=== PATIENT | male | born 1940 | race Caucasian/White ===

== ENCOUNTER 2022-11-14 17:03 | Inpatient (IN) | payer MEDICARE, OTHER ==
[~2022-11-14] VITALS: Ht 167.6 cm; Wt 90.7 kg
[2022-11-14] MEDS ORDERED: IV NS 0.9% 500 ML BAG IV ONE (17:30)
[2022-11-14 17:51] LABS: BASOPHILS # (AUTO) 0.1 K/uL (0.0-0.2); BASOPHILS % (AUTO) 0.5 % (0.0-2.0); EOSINOPHILS % (AUTO) 4.5 % (0.0-6.0); HEMATOCRIT 28 % (39-51); HEMOGLOBIN 9.4 g/dL (13.5-17.5); LYMPHOCYTES # (AUTO) 1.4 K/uL (0.8-4.8); LYMPHOCYTES % (AUTO) 13.5 % (20.0-44.0); MEAN CORPUSCULAR HGB CONC 34 g/dl (31.0-36.0); MEAN CORPUSCULAR VOLUME 91 fL (80-96); MONOCYTES # (AUTO) 0.8 K/uL (0.1-1.30); NEUTROPHILS # (AUTO) 7.8 K/uL (1.8-8.9); NEUTROPHILS % (AUTO) 73.5 % (43.0-81.0); PLATELET COUNT (AUTO) 126 K/uL (150-450); RED BLOOD CELL COUNT(AUTO) 3.05 MIL/uL (4.5-6.0); WHITE BLOOD COUNT (AUTO) 10.5 K/uL (4.3-11.0)
[2022-11-14 18:11] LABS: CALCIUM, SERUM 8.5 mg/dL (8.5-10.1); CARBON DIOXIDE 27 mmol/L (21-32); CHLORIDE 100 mmol/L (98-107); CREATININE 3.9 mg/dL (0.6-1.3); GLUCOSE 84 mg/dL (74-106); POTASSIUM 3.1 mmol/L (3.5-5.1); SODIUM SERUM 134 mmol/L (136-145); UREA NITROGEN, BLOOD 23 mg/dL (7-18)
[2022-11-14 18:24] LABS: ALANINE AMINOTRANSFERASE 6 U/L (12-78); ALKALINE PHOSPHATASE 68 U/L (46-116); ASPARTATE AMINOTRANSFERASE 15 U/L (15-37); BILIRUBIN,DIRECT 0.1 mg/dL (0.0-0.2); BILIRUBIN,TOTAL 0.5 mg/dL (0.2-1.0); TOTAL PROTEIN, SERUM 6.9 g/dL (6.4-8.2)
[2022-11-14 18:26] LABS: THYROID STIMULATING HORMONE 0.591 uIU/mL (0.358-3.74)
[2022-11-14] MEDS ORDERED: ASPIRIN 81 MG TAB.CHEW PO ONE (19:00)
[2022-11-14] MEDS ORDERED: HYDROCODONE/APAP 5/325MG TABLET PO PRN (19:30)
[2022-11-14] MEDS ORDERED: MAG HYDROX/AL HYDROX/SIMETH 30 ML UDC PO PRN (19:30)
[2022-11-14] MEDS ORDERED: ONDANSETRON HCL/PF 4 MG/2 ML VIAL IVP PRN (19:30)
[2022-11-14] MEDS ORDERED: Z GUARD REMEDY 4 OZ OINT TP PRN (19:30)
[2022-11-14] MEDS ORDERED: MORPHINE SULFATE INJ 2 MG/ML DISP.SYRIN IV PRN (19:30)
[2022-11-14] MEDS ORDERED: TEMAZEPAM 15 MG CAPSULE PO PRN (19:30)
[2022-11-14] MEDS ORDERED: MAGNESIUM HYDROXIDE 30 ML UDC PO PRN (19:30)
[2022-11-14 21:30] VITALS: BP 124/58
[2022-11-14 21:57] LABS: EOSINOPHILS % (MANUAL) 2 % (0-4); LYMPHOCYTES % (MANUAL) 13 % (16-48); MONOCYTES % (MANUAL) 7 % (0-11.0); NEUTROPHILS % (MANUAL) 78 (42-76)
[2022-11-14 22:15] VITALS: BP 124/58
[2022-11-15] VITALS: BP 106/54
[2022-11-15 04:00] VITALS: BP 111/59
[2022-11-15 06:32] LABS: BASOPHILS % (AUTO) 0.5 % (0.0-2.0); EOSINOPHILS % (AUTO) 4.3 % (0.0-6.0); HEMATOCRIT 26 % (39-51); HEMOGLOBIN 8.8 g/dL (13.5-17.5); LYMPHOCYTES # (AUTO) 1.5 K/uL (0.8-4.8); LYMPHOCYTES % (AUTO) 13.6 % (20.0-44.0); MEAN CORPUSCULAR HGB CONC 33 g/dl (31.0-36.0); MEAN CORPUSCULAR VOLUME 92 fL (80-96); MONOCYTES # (AUTO) 1.1 K/uL (0.1-1.30); MONOCYTES % (AUTO) 9.8 % (2.0-12.0); NEUTROPHILS # (AUTO) 7.8 K/uL (1.8-8.9); NEUTROPHILS % (AUTO) 71.8 % (43.0-81.0); PLATELET COUNT (AUTO) 118 K/uL (150-450); RED BLOOD CELL COUNT(AUTO) 2.87 MIL/uL (4.5-6.0); WHITE BLOOD COUNT (AUTO) 10.8 K/uL (4.3-11.0)
[2022-11-15 07:02] LABS: CALCIUM, SERUM 8.3 mg/dL (8.5-10.1); CARBON DIOXIDE 27 mmol/L (21-32); CHLORIDE 101 mmol/L (98-107); CREATININE 4.9 mg/dL (0.6-1.3); GLUCOSE 91 mg/dL (74-106); PHOSPHORUS 3.5 mg/dL (2.5-4.9); POTASSIUM 3.6 mmol/L (3.5-5.1); SODIUM SERUM 136 mmol/L (136-145); UREA NITROGEN, BLOOD 34 mg/dL (7-18)
[2022-11-15 07:12] LABS: CHOLESTEROL 75 mg/dL (<200); HDL CHOLESTEROL 26 mg/dL (40-60); LDL 44 mg/dL (0-99); THYROID STIMULATING HORMONE 2.169 uIU/mL (0.358-3.74); TRIGLYCERIDES 109 mg/dL (30-150)
[2022-11-15 08:00] VITALS: BP 130/64
[2022-11-15] MEDS: PANTOPRAZOLE 40 MG TABLET.DR PO SCH (08:07)
[2022-11-15] MEDS: ASPIRIN 81 MG TAB.CHEW PO SCH (08:07)
[2022-11-15 12:00] VITALS: BP 118/43
[2022-11-15 16:00] VITALS: BP 124/72
[2022-11-15 20:00] VITALS: BP 139/79
[2022-11-15 22:37] LABS: EOSINOPHILS % (MANUAL) 3 % (0-4); LYMPHOCYTES % (MANUAL) 12 % (16-48); MONOCYTES % (MANUAL) 11 % (0-11.0); NEUTROPHILS % (MANUAL) 74 (42-76)
[2022-11-16] VITALS: BP 131/71
[2022-11-16 04:00] VITALS: BP 143/73
[2022-11-16 06:48] LABS: BASOPHILS % (AUTO) 0.4 % (0.0-2.0); EOSINOPHILS % (AUTO) 4.3 % (0.0-6.0); HEMATOCRIT 27 % (39-51); HEMOGLOBIN 9.1 g/dL (13.5-17.5); LYMPHOCYTES # (AUTO) 1.7 K/uL (0.8-4.8); LYMPHOCYTES % (AUTO) 15.7 % (20.0-44.0); MEAN CORPUSCULAR HGB CONC 34 g/dl (31.0-36.0); MEAN CORPUSCULAR VOLUME 92 fL (80-96); MONOCYTES % (AUTO) 9.4 % (2.0-12.0); NEUTROPHILS # (AUTO) 7.5 K/uL (1.8-8.9); NEUTROPHILS % (AUTO) 70.2 % (43.0-81.0); PLATELET COUNT (AUTO) 116 K/uL (150-450); RED BLOOD CELL COUNT(AUTO) 2.93 MIL/uL (4.5-6.0); WHITE BLOOD COUNT (AUTO) 10.7 K/uL (4.3-11.0)
[2022-11-16 07:47] LABS: CALCIUM, SERUM 8.7 mg/dL (8.5-10.1); CARBON DIOXIDE 24 mmol/L (21-32); CHLORIDE 99 mmol/L (98-107); CREATININE 6.6 mg/dL (0.6-1.3); GLUCOSE 70 mg/dL (74-106); MAGNESIUM 2.2 mg/dL (1.8-2.4); PHOSPHORUS 4.4 mg/dL (2.5-4.9); POTASSIUM 4.1 mmol/L (3.5-5.1); SODIUM SERUM 136 mmol/L (136-145); UREA NITROGEN, BLOOD 45 mg/dL (7-18)
[2022-11-16 08:18] VITALS: BP 138/80
[2022-11-16] MEDS: PANTOPRAZOLE 40 MG TABLET.DR PO SCH (08:32)
[2022-11-16] MEDS: ACETAMINOPHEN 325 MG TABLET PO PRN (08:32)
[2022-11-16] MEDS: ASPIRIN 81 MG TAB.CHEW PO SCH (08:32)
[2022-11-16] MEDS ORDERED: BISACODYL (5 MG) 5 MG TABLET.DR PO PRN (16:00)
[2022-11-16] MEDS ORDERED: BISACODYL SUPP (10 MG) 10 MG/SUPP.RECT SUPP.RECT RC PRN (16:00)
[2022-11-16] MEDS ORDERED: POLYETHYLENE GLYCOL 3350 17 GM POWD.PACK PO PRN (16:00)
[2022-11-16 20:00] VITALS: BP 116/61
[2022-11-16] MEDS: SENNOSIDES 8.6 MG TABLET PO SCH (22:30)
[2022-11-17] VITALS: BP 139/56
[2022-11-17 04:00] VITALS: BP 145/75
[2022-11-17 06:57] LABS: BASOPHILS % (AUTO) 0.5 % (0.0-2.0); EOSINOPHILS % (AUTO) 4.4 % (0.0-6.0); HEMATOCRIT 27 % (39-51); HEMOGLOBIN 8.9 g/dL (13.5-17.5); LYMPHOCYTES # (AUTO) 1.5 K/uL (0.8-4.8); LYMPHOCYTES % (AUTO) 14.5 % (20.0-44.0); MEAN CORPUSCULAR HGB CONC 34 g/dl (31.0-36.0); MEAN CORPUSCULAR VOLUME 92 fL (80-96); MONOCYTES # (AUTO) 0.9 K/uL (0.1-1.30); MONOCYTES % (AUTO) 8.4 % (2.0-12.0); NEUTROPHILS # (AUTO) 7.4 K/uL (1.8-8.9); NEUTROPHILS % (AUTO) 72.2 % (43.0-81.0); PLATELET COUNT (AUTO) 121 K/uL (150-450); RED BLOOD CELL COUNT(AUTO) 2.88 MIL/uL (4.5-6.0); WHITE BLOOD COUNT (AUTO) 10.2 K/uL (4.3-11.0)
[2022-11-17 07:21] LABS: CALCIUM, SERUM 8.8 mg/dL (8.5-10.1); CARBON DIOXIDE 22 mmol/L (21-32); CHLORIDE 98 mmol/L (98-107); GLUCOSE 97 mg/dL (74-106); MAGNESIUM 2.4 mg/dL (1.8-2.4); PHOSPHORUS 5.4 mg/dL (2.5-4.9); POTASSIUM 4.3 mmol/L (3.5-5.1); SODIUM SERUM 133 mmol/L (136-145); UREA NITROGEN, BLOOD 59 mg/dL (7-18)
[2022-11-17 07:25] LABS: CREATININE 8.3 mg/dL (0.6-1.3)
[2022-11-17 08:00] VITALS: BP 144/81
[2022-11-17] MEDS: PANTOPRAZOLE 40 MG TABLET.DR PO SCH (08:36)
[2022-11-17] MEDS: ASPIRIN 81 MG TAB.CHEW PO SCH (08:36)
[2022-11-17 12:00] VITALS: BP 161/99
[2022-11-17 16:00] VITALS: BP 125/75
[2022-11-17 20:00] VITALS: BP 147/59
[2022-11-17] MEDS: SENNOSIDES 8.6 MG TABLET PO SCH (22:00)
[2022-11-18] VITALS: BP 130/63
[2022-11-18 04:00] VITALS: BP 147/68
[2022-11-18 07:00] VITALS: BP 132/56
[2022-11-18] MEDS: PANTOPRAZOLE 40 MG TABLET.DR PO SCH (07:56)
[2022-11-18 08:56] LABS: ALANINE AMINOTRANSFERASE 9 U/L (12-78); ALKALINE PHOSPHATASE 76 U/L (46-116); ASPARTATE AMINOTRANSFERASE 13 U/L (15-37); BILIRUBIN,TOTAL 0.4 mg/dL (0.2-1.0); CARBON DIOXIDE 27 mmol/L (21-32); CHLORIDE 100 mmol/L (98-107); CREATININE 6.2 mg/dL (0.6-1.3); GLUCOSE 83 mg/dL (74-106); POTASSIUM 4.1 mmol/L (3.5-5.1); SODIUM SERUM 137 mmol/L (136-145); TOTAL PROTEIN, SERUM 6.7 g/dL (6.4-8.2); UREA NITROGEN, BLOOD 38 mg/dL (7-18)
[2022-11-18] MEDS: ASPIRIN 81 MG TAB.CHEW PO SCH (10:06)
[2022-11-18] MEDS ORDERED: ASPI-1169 PO (10:41)
[2022-11-18 16:00] VITALS: BP 126/65
[2022-11-18] MEDS: SENNOSIDES 8.6 MG TABLET PO SCH (21:18)
[2022-11-19] MEDS: ACETAMINOPHEN 325 MG TABLET PO PRN (00:01)
[2022-11-19 07:00] VITALS: BP 142/67
== END 2022-11-19 06:00 | disposition short-term general hospital (02) | DRG 280 ==
LOC: ER 17:12 → MED 20:54 → TELE 21:24
PROVIDERS: ADMIT Nurse Practitioner Acute Care; ATTEND Internal Medicine
PROC: 5A1D70Z Performance of Urinary Filtration, Intermittent, Less than 6 Hours Per Day (ICD-10-PCS; principal; 2022-11-17)
DX: I13.2 Hypertensive heart and chronic kidney disease with heart failure and with stage 5 chronic kidney disease, or end stage renal disease (principal); I21.A1 Myocardial infarction type 2; I50.33 Acute on chronic diastolic (congestive) heart failure; N18.6 End stage renal disease; E87.1 Hypo-osmolality and hyponatremia; D62 Acute posthemorrhagic anemia; I25.83 Coronary atherosclerosis due to lipid rich plaque; E78.5 Hyperlipidemia, unspecified; I48.91 Unspecified atrial fibrillation; Z99.2 Dependence on renal dialysis; Z85.46 Personal history of malignant neoplasm of prostate; D63.8 Anemia in other chronic diseases classified elsewhere; D69.6 Thrombocytopenia, unspecified; G20 Parkinson's disease; F29 Unspecified psychosis not due to a substance or known physiological condition; E66.3 Overweight; Z68.32 Body mass index [BMI] 32.0-32.9, adult; G93.89 Other specified disorders of brain; I27.20 Pulmonary hypertension, unspecified; I70.0 Atherosclerosis of aorta
CPT/HCPCS: 36415; 70450-TC; 71045-TC; 80048-TC; 80053-TC; 80061-TC; 80076-TC; 83735-TC; 83880; 84100-TC; 84443-TC; 84484-TC; 85025-TC; 86706; 87040-TC; 87081-TC; 87340; 90935-TC; 93307-TC; 97112-TC; 97530-TC; C9803; G0378; J7030; J7040

== ENCOUNTER 2022-12-22 17:11 | Emergency (ER) | payer OTHER ==
[~2022-12-22] VITALS: Ht 167.6 cm; Wt 68.0 kg
[~2022-12-22 17:11] MED LIST: ASPI-1169 PO
--- NOTE | 2022-12-22 17:32 | NUR ---
DR JONES AT BEDSIDE
--- NOTE | 2022-12-22 17:47 | NUR ---
XRAY AT BEDSIDE
--- NOTE | 2022-12-22 17:55 | NUR ---
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 COLLECTED BLOOD AND SENT TO LAB
[2022-12-22] MEDS ORDERED: LORAZEPAM INJ 2 MG/ML VIAL IV ONE (18:00)
[2022-12-22] MEDS ORDERED: ACETAMINOPHEN ES 500 MG TABLET PO ONE (18:00)
[2022-12-22 18:18] LABS: BASOPHILS % (AUTO) 0.4 % (0.0-2.0); EOSINOPHILS % (AUTO) 4.3 % (0.0-6.0); HEMATOCRIT 36 % (39-51); HEMOGLOBIN 11.7 g/dL (13.5-17.5); LYMPHOCYTES # (AUTO) 1.9 K/uL (0.8-4.8); LYMPHOCYTES % (AUTO) 27.9 % (20.0-44.0); MEAN CORPUSCULAR HGB CONC 32 g/dl (31.0-36.0); MEAN CORPUSCULAR VOLUME 95 fL (80-96); MONOCYTES # (AUTO) 0.7 K/uL (0.1-1.30); MONOCYTES % (AUTO) 9.6 % (2.0-12.0); NEUTROPHILS % (AUTO) 57.8 % (43.0-81.0); PLATELET COUNT (AUTO) 78 K/uL (150-450); RED BLOOD CELL COUNT(AUTO) 3.83 MIL/uL (4.5-6.0)
--- NOTE | 2022-12-22 18:18 | NUR ---
ESTABLISHED IV ACCESS. L FA 20G
--- NOTE | 2022-12-22 18:19 | NUR ---
ROBERTH GONZÁLES, DAUGHTER
[2022-12-22] MEDS ORDERED: ACETAMINOPHEN ES 500 MG TABLET ONE (18:20)
[2022-12-22] MEDS ORDERED: LORAZEPAM INJ 2 MG/ML VIAL ONE (18:21)
--- NOTE | 2022-12-22 18:25 | NUR ---
PATIENT PASSED SWALLOW SCREEN. MEDS CRUSHED AND GIVEN WITH APPLE SAUCE
[2022-12-22 18:34] LABS: SERUM AMMONIA 27 umol/L (11-32)
--- NOTE | 2022-12-22 18:37 | NUR ---
PATIENT TAKEN TO CT VIA [facility]
[2022-12-22 18:45] LABS: ALANINE AMINOTRANSFERASE 8 U/L (12-78); ALBUMIN 3.5 g/dL (3.4-5.0); ALKALINE PHOSPHATASE 74 U/L (46-116); ASPARTATE AMINOTRANSFERASE 13 U/L (15-37); BILIRUBIN,DIRECT 0.2 mg/dL (0.0-0.2); BILIRUBIN,TOTAL 0.7 mg/dL (0.2-1.0); CALCIUM, SERUM 8.7 mg/dL (8.5-10.1); CARBON DIOXIDE 27 mmol/L (21-32); CHLORIDE 102 mmol/L (98-107); CREATININE 4.5 mg/dL (0.6-1.3); GLUCOSE 79 mg/dL (74-106); POTASSIUM 3.9 mmol/L (3.5-5.1); SODIUM SERUM 138 mmol/L (136-145); UREA NITROGEN, BLOOD 23 mg/dL (7-18)
[2022-12-22 18:50] LABS: MAGNESIUM 2.2 mg/dL (1.8-2.4)
--- NOTE | 2022-12-22 22:46 | NUR ---
[facility] CALLED ETA 90 MINS
[2022-12-23 00:05] LABS: NEUTROPHILS % (MANUAL) 61 (42-76)
[2022-12-23 00:06] LABS: EOSINOPHILS % (MANUAL) 3 % (0-4); LYMPHOCYTES % (MANUAL) 26 % (16-48); MONOCYTES % (MANUAL) 10 % (0-11.0)
--- NOTE | 2022-12-23 01:30 | NUR ---
TRANSFERRED TO THE FACILITY IN STABLE CONDTION
[2022-12-23 01:39] VITALS: BP 131/59
== END 2022-12-23 01:39 | disposition home or self-care (01) ==
LOC: ER 17:14
DX: I12.0 Hypertensive chronic kidney disease with stage 5 chronic kidney disease or end stage renal disease (principal); N18.6 End stage renal disease; D63.1 Anemia in chronic kidney disease; D69.6 Thrombocytopenia, unspecified; E87.70 Fluid overload, unspecified; R53.1 Weakness; Z79.82 Long term (current) use of aspirin; Z99.2 Dependence on renal dialysis
CPT/HCPCS: 99285; 96374; 70450; 71045; 93005; 82140; 85025; 80048; 80076; 83735; 36415; 84484 ×2; 83880; 85007; J2060; J7030

== ENCOUNTER 2024-01-08 12:35 | Inpatient (IN) | payer OTHER ==
[~2024-01-08] VITALS: Ht 188 cm; Wt 88.9 kg
[2024-01-08 13:03] LABS: BASOPHILS % (AUTO) 0.4 % (0.0-2.0); EOSINOPHILS # (AUTO) 0.5 K/uL (0.0-0.7); EOSINOPHILS % (AUTO) 5.6 % (0.0-6.0); HEMATOCRIT 21 % (39-51); HEMOGLOBIN 7.1 g/dL (13.5-17.5); LYMPHOCYTES # (AUTO) 1.8 K/uL (0.8-4.8); LYMPHOCYTES % (AUTO) 20.4 % (20.0-44.0); MEAN CORPUSCULAR HEMOGLOBIN 32 PG (26.0-33.0); MEAN CORPUSCULAR HGB CONC 34 g/dl (31.0-36.0); MEAN CORPUSCULAR VOLUME 95 fL (80-96); MONOCYTES # (AUTO) 0.8 K/uL (0.1-1.30); MONOCYTES % (AUTO) 9.2 % (2.0-12.0); NEUTROPHILS # (AUTO) 5.7 K/uL (1.8-8.9); NEUTROPHILS % (AUTO) 64.4 % (43.0-81.0); PLATELET COUNT (AUTO) 125 K/uL (150-450); RED BLOOD CELL COUNT(AUTO) 2.21 MIL/uL (4.5-6.0); RED CELL DISTRIBUTION WIDTH 15.2 % (11.5-15.0); WHITE BLOOD COUNT (AUTO) 8.9 K/uL (4.3-11.0)
[2024-01-08 13:11] LABS: CALCIUM, SERUM 9.5 mg/dL (8.5-10.1); CARBON DIOXIDE 27 mmol/L (21-32); CHLORIDE 95 mmol/L (98-107); GLUCOSE 105 mg/dL (74-106); POTASSIUM 3.8 mmol/L (3.5-5.1); SODIUM SERUM 133 mmol/L (136-145)
[2024-01-08 13:16] LABS: INR 1.2 (0.91-1.10); PROTHROMBIN TIME 12.6 SECS (9.2-11.1)
[2024-01-08 13:24] LABS: ALANINE AMINOTRANSFERASE 12 U/L (12-78); ALBUMIN 3.3 g/dL (3.4-5.0); ALKALINE PHOSPHATASE 58 U/L (46-116); ASPARTATE AMINOTRANSFERASE 9 U/L (15-37); BILIRUBIN,DIRECT 0.1 mg/dL (0.0-0.2); BILIRUBIN,TOTAL 0.3 mg/dL (0.2-1.0); NT-PRO BNP > 25000 pg/mL (0-125); TOTAL PROTEIN, SERUM 6.7 g/dL (6.4-8.2)
[2024-01-08 13:25] LABS: CREATININE 8.3 mg/dL (0.6-1.3)
[2024-01-08 13:28] LABS: UREA NITROGEN, BLOOD 80 mg/dL (7-18)
[2024-01-08] MEDS ORDERED: ZINC57OI4 TP (15:11)
[2024-01-08] MEDS ORDERED: PRIM50TA27 PO (15:11)
[2024-01-08] MEDS ORDERED: HYDR-4076 PO (15:11)
[2024-01-08] MEDS ORDERED: ATOR20TA PO (15:11)
[2024-01-08] MEDS ORDERED: CYCL30DR EACHEYE (15:11)
[2024-01-08] MEDS ORDERED: ACET-868 PO (15:11)
[2024-01-08] MEDS ORDERED: LORA10TA7 PO (15:11)
[2024-01-08] MEDS ORDERED: MONT10TA22 PO (15:11)
[2024-01-08] MEDS ORDERED: POVI3780 TP (15:11)
[2024-01-08] MEDS ORDERED: MAGN400O6 PO (15:11)
[2024-01-08] MEDS ORDERED: CHOL200059 PO (15:11)
[2024-01-08] MEDS ORDERED: BISA10SU11 RC (15:11)
[2024-01-08] MEDS ORDERED: APIX2.5T PO (15:11)
[2024-01-08] MEDS ORDERED: SEVELAMER CARBONATE PO (15:11)
[2024-01-08] MEDS ORDERED: CINA30TA2 PO (15:11)
[2024-01-08] MEDS ORDERED: FLUT16SP BNOSTRILS (15:11)
[2024-01-08] MEDS ORDERED: GABA-532 PO (15:11)
[2024-01-08] MEDS ORDERED: ALEN70TA80 PO (15:11)
[2024-01-08] MEDS ORDERED: DOCU100T2 PO (15:11)
[2024-01-08] MEDS ORDERED: FOLI0.8T2 PO (15:11)
[2024-01-08] MEDS ORDERED: GLUC1KIT IM (15:11)
[2024-01-08] MEDS ORDERED: AMIN30LI2 PO (15:11)
[2024-01-08] MEDS ORDERED: AZEL205. BNOSTRILS (15:11)
[2024-01-08] MEDS ORDERED: CELE100C PO (15:11)
[2024-01-08] MEDS ORDERED: DOXA2TAB2 PO (15:11)
[2024-01-08] MEDS ORDERED: LISI10TA29 PO (15:11)
[2024-01-08] MEDS ORDERED: BENZ14GE MM (15:11)
[2024-01-08] MEDS ORDERED: ACETAMINOPHEN 325 MG TABLET PO PRN (16:00)
[2024-01-08] MEDS ORDERED: hydrALAZINE HCL IV 20 MG VIAL IV PRN (16:00)
[2024-01-08] MEDS ORDERED: ONDANSETRON HCL/PF 4 MG/2 ML VIAL IVP PRN (16:00)
[2024-01-08] MEDS ORDERED: PRIMIDONE 50 MG TABLET PO PRN (19:00)
[2024-01-08 20:00] VITALS: BP 129/61; TEMP 98; O2SAT 100
[2024-01-08 21:08] LABS: HEMOGLOBIN 6.9 g/dL (13.5-17.5)
[2024-01-08] MEDS: ATORVASTATIN 10 MG TABLET PO SCH (21:29)
[2024-01-08] MEDS: DOXAZOSIN MESYLATE (1 MG) 1 MG TABLET PO SCH (21:30)
[2024-01-08] MEDS: INSULIN REGULAR, HUMAN 100 UNIT/ML 3 ML VIAL SQ PRN (21:42)
[2024-01-08] MEDS: BLOOD SUGAR DIAGNOSTIC 1 EACH STRIP IN SCH (21:42)
[2024-01-08 22:25] VITALS: BP 136/64; TEMP 97.5
[2024-01-08 22:45] VITALS: BP 117/64; TEMP 97.5
[2024-01-08 23:00] VITALS: BP 122/71; TEMP 97.6
[2024-01-08 23:15] VITALS: BP 114/56; TEMP 97.5
[2024-01-08 23:30] VITALS: BP 118/60; TEMP 97.7
[2024-01-09] VITALS (12 sets, daily range): BP systolic 109–143; BP diastolic 51–68; TEMP 97.6–98.6; O2SAT 96–100
[2024-01-09 07:06] LABS: BASOPHILS % (AUTO) 0.6 % (0.0-2.0); EOSINOPHILS # (AUTO) 0.5 K/uL (0.0-0.7); EOSINOPHILS % (AUTO) 6.1 % (0.0-6.0); LYMPHOCYTES # (AUTO) 1.5 K/uL (0.8-4.8); LYMPHOCYTES % (AUTO) 18.8 % (20.0-44.0); MEAN CORPUSCULAR HEMOGLOBIN 32 PG (26.0-33.0); MEAN CORPUSCULAR HGB CONC 34 g/dl (31.0-36.0); MEAN CORPUSCULAR VOLUME 94 fL (80-96); MONOCYTES # (AUTO) 0.7 K/uL (0.1-1.30); MONOCYTES % (AUTO) 8.7 % (2.0-12.0); NEUTROPHILS # (AUTO) 5.2 K/uL (1.8-8.9); NEUTROPHILS % (AUTO) 65.8 % (43.0-81.0); PLATELET COUNT (AUTO) 119 K/uL (150-450); RED BLOOD CELL COUNT(AUTO) 2.15 MIL/uL (4.5-6.0); WHITE BLOOD COUNT (AUTO) 7.9 K/uL (4.3-11.0)
[2024-01-09 07:32] LABS: HEMOGLOBIN 6.8 g/dL (13.5-17.5)
[2024-01-09 07:47] LABS: ALANINE AMINOTRANSFERASE 7 U/L (12-78); ALKALINE PHOSPHATASE 49 U/L (46-116); ASPARTATE AMINOTRANSFERASE 8 U/L (15-37); BILIRUBIN,TOTAL 0.4 mg/dL (0.2-1.0); CALCIUM, SERUM 9.3 mg/dL (8.5-10.1); CARBON DIOXIDE 23 mmol/L (21-32); CHLORIDE 96 mmol/L (98-107); GLUCOSE 79 mg/dL (74-106); POTASSIUM 4.1 mmol/L (3.5-5.1); SODIUM SERUM 133 mmol/L (136-145)
[2024-01-09 08:10] LABS: CREATININE 9.1 mg/dL (0.6-1.3); UREA NITROGEN, BLOOD 93 mg/dL (7-18)
[2024-01-09] MEDS: DOCUSATE SODIUM 100 MG CAPSULE PO SCH (08:17)
[2024-01-09] MEDS: SEVELAMER CARBONATE 800 MG TABLET PO SCH (08:17)
[2024-01-09] MEDS: MONTELUKAST SODIUM (10MG) 10 MG TABLET PO SCH (08:17)
[2024-01-09] MEDS: LISINOPRIL (10MG) 10 MG TABLET PO SCH (08:18)
[2024-01-09] MEDS: APIXABAN 2.5 MG TABLET PO SCH (08:19)
[2024-01-09] MEDS: CINACALCET HCL 30 MG TABLET PO SCH (08:21)
[2024-01-09 08:22] LABS: HEMOGLOBIN 6.8 g/dL (13.5-17.5)
[2024-01-09 08:23] LABS: HEMATOCRIT 20 % (39-51)
[2024-01-09 09:07] LABS: IRON, SERUM 31 ug/dl (50-175); TOTAL IRON BINDING CAPACITY 142 ug/dl (250-450)
[2024-01-09 10:19] LABS: ANISOCYTOSIS 1+; BASOPHILS % (MANUAL) 0 % (0.0-2.0); EOSINOPHILS % (MANUAL) 5 % (0-4); LYMPHOCYTES % (MANUAL) 15 % (16-48); MONOCYTES % (MANUAL) 9 % (0-11.0); NEUTROPHILS % (MANUAL) 71 (42-76); OVALOCYTES 1+; PLATELET ESTIMATE DECREASED; TEAR DROP CELLS 1+
[2024-01-09] MEDS: EPOETIN ALFA (10,000 UNIT) 10,000 UNIT/ML VIAL IV ONE (14:47)
[2024-01-09] MEDS: POLYVINYL ALCOHOL 15 ML BOTTLE EACHEYE SCH (16:10)
[2024-01-09 20:08] LABS: HEMOGLOBIN 8.3 g/dL (13.5-17.5)
[2024-01-10 00:05] VITALS: BP 120/59; TEMP 98.3; O2SAT 99
[2024-01-10 05:03] VITALS: BP 125/69; TEMP 98.6; O2SAT 100
[2024-01-10 08:00] VITALS: BP 137/62; TEMP 97.8; O2SAT 99
[2024-01-10] MEDS ORDERED: IOHEXOL-350 100 ML VIAL IV ONE (08:21)
[2024-01-10] MEDS ORDERED: IV NS 0.9% 250 ML IV ONE (08:21)
[2024-01-10 09:17] LABS: HEMOGLOBIN 8.4 g/dL (13.5-17.5)
[2024-01-10 14:07] LABS: HEPATITIS B SURFACE AB Reactive (.)
[2024-01-10 16:00] VITALS: BP 164/85; TEMP 98.6; O2SAT 99
[2024-01-10 20:00] VITALS: BP 126/63; TEMP 98.1; O2SAT 98
[2024-01-11 04:00] VITALS: BP 149/75; TEMP 98.8; O2SAT 99
[2024-01-11 08:00] VITALS: BP 123/60; TEMP 98.8; O2SAT 99
[2024-01-11 09:17] LABS: HEMOGLOBIN 7.9 g/dL (13.5-17.5)
[2024-01-11 14:51] LABS: HEMOGLOBIN 7.8 g/dL (13.5-17.5)
[2024-01-11 16:00] VITALS: BP 128/61; TEMP 98.7; O2SAT 99
[2024-01-11 20:00] VITALS: BP 123/64; TEMP 98.4; O2SAT 99
[2024-01-12 04:00] VITALS: BP 113/58; TEMP 98.8; O2SAT 99
[2024-01-12 06:31] LABS: BASOPHILS % (AUTO) 0.4 % (0.0-2.0); EOSINOPHILS # (AUTO) 0.4 K/uL (0.0-0.7); EOSINOPHILS % (AUTO) 5.6 % (0.0-6.0); HEMATOCRIT 23 % (39-51); HEMOGLOBIN 7.7 g/dL (13.5-17.5); LYMPHOCYTES # (AUTO) 1.2 K/uL (0.8-4.8); LYMPHOCYTES % (AUTO) 16.9 % (20.0-44.0); MEAN CORPUSCULAR HEMOGLOBIN 31 PG (26.0-33.0); MEAN CORPUSCULAR HGB CONC 34 g/dl (31.0-36.0); MEAN CORPUSCULAR VOLUME 92 fL (80-96); MONOCYTES # (AUTO) 0.8 K/uL (0.1-1.30); MONOCYTES % (AUTO) 10.9 % (2.0-12.0); NEUTROPHILS # (AUTO) 4.7 K/uL (1.8-8.9); NEUTROPHILS % (AUTO) 66.2 % (43.0-81.0); PLATELET COUNT (AUTO) 112 K/uL (150-450); RED BLOOD CELL COUNT(AUTO) 2.46 MIL/uL (4.5-6.0); RED CELL DISTRIBUTION WIDTH 15.1 % (11.5-15.0); WHITE BLOOD COUNT (AUTO) 7.1 K/uL (4.3-11.0)
[2024-01-12 07:04] LABS: CALCIUM, SERUM 9.1 mg/dL (8.5-10.1); CARBON DIOXIDE 23 mmol/L (21-32); CHLORIDE 96 mmol/L (98-107); GLUCOSE 86 mg/dL (74-106); PHOSPHORUS 4.5 mg/dL (2.5-4.9); POTASSIUM 3.6 mmol/L (3.5-5.1); SODIUM SERUM 132 mmol/L (136-145); UREA NITROGEN, BLOOD 66 mg/dL (7-18)
[2024-01-12 07:07] LABS: CREATININE 7.8 mg/dL (0.6-1.3)
[2024-01-12 07:20] LABS: OCCULT BLOOD STOOL POSITIVE (NEGATIVE)
[2024-01-12 08:00] VITALS: BP 145/67; TEMP 99.3; O2SAT 95
[2024-01-12] MEDS: PANTOPRAZOLE 40 MG VIAL IV SCH (08:08)
[2024-01-12] MEDS ORDERED: PEG 3350/NA SULF,BICARB,CL/KCL 4,000 ML BOTTLE PO ONE (09:00)
[2024-01-12] MEDS: PEG 3350/NA SULF,BICARB,CL/KCL 4,000 ML BOTTLE PO ONE (09:03)
[2024-01-12] MEDS: PROSOURCE / PROSTAT (PYXIS) 30 ML UDC PO SCH (09:03)
[2024-01-12 16:00] VITALS: BP 159/76; TEMP 98.3; O2SAT 99
[2024-01-12 20:00] VITALS: BP 142/69; TEMP 97.9; O2SAT 98
[2024-01-12] MEDS: MORPHINE SULFATE INJ 2 MG/ML DISP.SYRIN IV PRN (22:45)
[2024-01-13 04:00] VITALS: BP 142/71; TEMP 98; O2SAT 98
[2024-01-13 07:28] LABS: BASOPHILS % (AUTO) 0.4 % (0.0-2.0); EOSINOPHILS # (AUTO) 0.4 K/uL (0.0-0.7); HEMATOCRIT 25 % (39-51); HEMOGLOBIN 8.5 g/dL (13.5-17.5); LYMPHOCYTES # (AUTO) 1.8 K/uL (0.8-4.8); LYMPHOCYTES % (AUTO) 22.6 % (20.0-44.0); MEAN CORPUSCULAR HEMOGLOBIN 31 PG (26.0-33.0); MEAN CORPUSCULAR HGB CONC 34 g/dl (31.0-36.0); MEAN CORPUSCULAR VOLUME 91 fL (80-96); MONOCYTES # (AUTO) 0.8 K/uL (0.1-1.30); MONOCYTES % (AUTO) 10.4 % (2.0-12.0); NEUTROPHILS # (AUTO) 4.9 K/uL (1.8-8.9); NEUTROPHILS % (AUTO) 61.6 % (43.0-81.0); PLATELET COUNT (AUTO) 107 K/uL (150-450); RED CELL DISTRIBUTION WIDTH 14.9 % (11.5-15.0); WHITE BLOOD COUNT (AUTO) 7.9 K/uL (4.3-11.0)
[2024-01-13 08:00] VITALS: BP 151/69; TEMP 98.6; O2SAT 99
[2024-01-13 08:03] LABS: CALCIUM, SERUM 9.3 mg/dL (8.5-10.1); CARBON DIOXIDE 23 mmol/L (21-32); CHLORIDE 95 mmol/L (98-107); GLUCOSE 71 mg/dL (74-106); PHOSPHORUS 5.3 mg/dL (2.5-4.9); POTASSIUM 3.6 mmol/L (3.5-5.1); SODIUM SERUM 134 mmol/L (136-145); UREA NITROGEN, BLOOD 71 mg/dL (7-18)
[2024-01-13 08:26] LABS: CREATININE 8.9 mg/dL (0.6-1.3)
[2024-01-13 16:00] VITALS: BP 150/76; TEMP 98.7; O2SAT 99
[2024-01-13] MEDS: DEXTROSE 50%-WATER 50 ML DISP.SYRIN IV PRN (18:49)
[2024-01-13 20:00] VITALS: BP 95/64; TEMP 97.8; O2SAT 98
[2024-01-14 04:00] VITALS: BP 152/69; TEMP 98.1; O2SAT 96
[2024-01-14 07:20] LABS: BASOPHILS % (AUTO) 0.6 % (0.0-2.0); EOSINOPHILS # (AUTO) 0.4 K/uL (0.0-0.7); EOSINOPHILS % (AUTO) 4.8 % (0.0-6.0); HEMATOCRIT 24 % (39-51); HEMOGLOBIN 8.2 g/dL (13.5-17.5); LYMPHOCYTES # (AUTO) 1.2 K/uL (0.8-4.8); LYMPHOCYTES % (AUTO) 15.6 % (20.0-44.0); MEAN CORPUSCULAR HEMOGLOBIN 32 PG (26.0-33.0); MEAN CORPUSCULAR HGB CONC 35 g/dl (31.0-36.0); MEAN CORPUSCULAR VOLUME 91 fL (80-96); MONOCYTES # (AUTO) 0.8 K/uL (0.1-1.30); MONOCYTES % (AUTO) 9.8 % (2.0-12.0); NEUTROPHILS # (AUTO) 5.4 K/uL (1.8-8.9); NEUTROPHILS % (AUTO) 69.2 % (43.0-81.0); PLATELET COUNT (AUTO) 109 K/uL (150-450); RED BLOOD CELL COUNT(AUTO) 2.61 MIL/uL (4.5-6.0); RED CELL DISTRIBUTION WIDTH 14.9 % (11.5-15.0); WHITE BLOOD COUNT (AUTO) 7.8 K/uL (4.3-11.0)
[2024-01-14 08:00] VITALS: BP 149/60; TEMP 98.6; O2SAT 99
[2024-01-14 08:11] LABS: CALCIUM, SERUM 9.6 mg/dL (8.5-10.1); CARBON DIOXIDE 21 mmol/L (21-32); CHLORIDE 96 mmol/L (98-107); GLUCOSE 69 mg/dL (74-106); MAGNESIUM 2.1 mg/dL (1.8-2.4); POTASSIUM 3.8 mmol/L (3.5-5.1); SODIUM SERUM 136 mmol/L (136-145); UREA NITROGEN, BLOOD 77 mg/dL (7-18)
[2024-01-14 08:14] LABS: CREATININE 10.2 mg/dL (0.6-1.3)
[2024-01-14] MEDS: PANTOPRAZOLE 40 MG/PACK PACK PO SCH (10:10)
[2024-01-14 16:00] VITALS: BP 154/65; TEMP 98; O2SAT 98
[2024-01-14 17:22] VITALS: BP 156/65
== END 2024-01-14 20:04 | DRG 377 ==
LOC: ER 12:55 → TELE-TD 18:20 → TELE1 20:08 → MEDSG1 01-10 11:10
PROVIDERS: ADMIT Internal Medicine; ATTEND Student in an Organized Health Care Education/Training Program
PROC: 30233N1 Transfusion of Nonautologous Red Blood Cells into Peripheral Vein, Percutaneous Approach (ICD-10-PCS; 2024-01-08)
PROC: 5A1D70Z Performance of Urinary Filtration, Intermittent, Less than 6 Hours Per Day (ICD-10-PCS; principal; 2024-01-09)
PROC: 0DB98ZX Excision of Duodenum, Via Natural or Artificial Opening Endoscopic, Diagnostic (ICD-10-PCS; 2024-01-13)
PROC: 0DBK8ZX Excision of Ascending Colon, Via Natural or Artificial Opening Endoscopic, Diagnostic (ICD-10-PCS; 2024-01-13)
PROC: 0DBH8ZX Excision of Cecum, Via Natural or Artificial Opening Endoscopic, Diagnostic (ICD-10-PCS; 2024-01-13)
PROC: 0G9G3ZX Drainage of Left Thyroid Gland Lobe, Percutaneous Approach, Diagnostic (ICD-10-PCS; 2024-01-14)
DX: K57.31 Diverticulosis of large intestine without perforation or abscess with bleeding (principal); J98.59 Other diseases of mediastinum, not elsewhere classified; N18.6 End stage renal disease; I13.2 Hypertensive heart and chronic kidney disease with heart failure and with stage 5 chronic kidney disease, or end stage renal disease; D68.69 Other thrombophilia; I50.9 Heart failure, unspecified; E11.22 Type 2 diabetes mellitus with diabetic chronic kidney disease; D63.1 Anemia in chronic kidney disease; K29.70 Gastritis, unspecified, without bleeding; D69.6 Thrombocytopenia, unspecified; E04.1 Nontoxic single thyroid nodule; E78.5 Hyperlipidemia, unspecified; G20.A1 Parkinson's disease without dyskinesia, without mention of fluctuations; I48.91 Unspecified atrial fibrillation; Z79.01 Long term (current) use of anticoagulants; Z79.82 Long term (current) use of aspirin; Z99.2 Dependence on renal dialysis; Z95.0 Presence of cardiac pacemaker; K63.5 Polyp of colon; Z20.822 Contact with and (suspected) exposure to COVID-19
CPT/HCPCS: 36415; 71045-TC; 76536-TC; 80048-TC; 80053-TC; 80076-TC; 82272-TC; 82962-TC; 83540-TC; 83605-TC; 83735-TC; 83880; 84100-TC; 84484-TC; 85025-TC; 85027-TC; 85730-TC; 86706; 86850-TC; 87081-TC; 87340; 90935-TC; 93307-TC; C9113; G0378; J0885; J1815; J2270; J3490; J7030; J7050; P9016; Q9967

== ENCOUNTER 2024-02-05 13:30 | Emergency (ER) | payer MEDICAID, MEDICARE, OTHER ==
[~2024-02-05] VITALS: Ht 167.6 cm; Wt 93.4 kg
[~2024-02-05 13:30] MED LIST changes: +ACET-868 PO; +ALEN70TA80 PO; +AMIN30LI2 PO; +APIX2.5T PO; -ASPI-1169 PO; +ATOR20TA PO; +AZEL205. BNOSTRILS; +BENZ14GE MM; +BISA10SU11 RC; +CHOL200059 PO; +CINA30TA2 PO; +CYCL30DR EACHEYE; +DOCU100T2 PO; +DOXA2TAB2 PO; +FLUT16SP BNOSTRILS; +FOLI0.8T2 PO; +GABA-532 PO; +GLUC1KIT IM; +HYDR-4076 PO; +LISI10TA29 PO; +LORA10TA7 PO; +MAGN400O6 PO; +MONT10TA22 PO; +POVI3780 TP; +PRIM50TA27 PO; +SEVELAMER CARBONATE PO; +ZINC57OI4 TP
[2024-02-05 14:55] LABS: CARBON DIOXIDE 24 mmol/L (21-32); CHLORIDE 98 mmol/L (98-107); GLUCOSE 95 mg/dL (74-106); POTASSIUM 3.6 mmol/L (3.5-5.1); UREA NITROGEN, BLOOD 76 mg/dL (7-18)
[2024-02-05 15:00] LABS: CREATININE 10.6 mg/dL (0.6-1.3)
[2024-02-05 15:01] LABS: SODIUM SERUM 136 mmol/L (136-145)
[2024-02-05 15:12] LABS: BASOPHILS % (AUTO) 0.5 % (0.0-2.0); EOSINOPHILS # (AUTO) 0.4 K/uL (0.0-0.7); EOSINOPHILS % (AUTO) 6.2 % (0.0-6.0); HEMATOCRIT 25 % (39-51); HEMOGLOBIN 8.6 g/dL (13.5-17.5); LYMPHOCYTES # (AUTO) 1.5 K/uL (0.8-4.8); LYMPHOCYTES % (AUTO) 22.3 % (20.0-44.0); MEAN CORPUSCULAR HEMOGLOBIN 31 PG (26.0-33.0); MEAN CORPUSCULAR HGB CONC 34 g/dl (31.0-36.0); MEAN CORPUSCULAR VOLUME 92 fL (80-96); MONOCYTES # (AUTO) 0.6 K/uL (0.1-1.30); PLATELET COUNT (AUTO) 126 K/uL (150-450); RED BLOOD CELL COUNT(AUTO) 2.77 MIL/uL (4.5-6.0); RED CELL DISTRIBUTION WIDTH 15.3 % (11.5-15.0); WHITE BLOOD COUNT (AUTO) 6.5 K/uL (4.3-11.0)
[2024-02-05 15:15] LABS: INR 1.23 (0.91-1.10); PARTIAL THROMBOPLASTIN TIME 36.3 SEC (24.3-34.3); PROTHROMBIN TIME 12.9 SECS (9.2-11.1)
[2024-02-05 16:19] VITALS: BP 136/76; TEMP 98.2; O2SAT 97
== END 2024-02-05 16:30 ==
LOC: ER 14:13
DX: T82.510A Breakdown (mechanical) of surgically created arteriovenous fistula, initial encounter (principal); G20.A1 Parkinson's disease without dyskinesia, without mention of fluctuations; I12.0 Hypertensive chronic kidney disease with stage 5 chronic kidney disease or end stage renal disease; E11.22 Type 2 diabetes mellitus with diabetic chronic kidney disease; N18.6 End stage renal disease; Z99.2 Dependence on renal dialysis; Z79.899 Other long term (current) drug therapy
CPT/HCPCS: 36415; 71045-TC; 80048-TC; 85025-TC; 85730-TC

== ENCOUNTER 2024-06-17 13:29 | Inpatient (IN) | payer OTHER ==
[~2024-06-17] VITALS: Ht 167.6 cm; Wt 79.4 kg
[2024-06-17 14:22] LABS: BASOPHILS # (AUTO) 0.1 K/uL (0.0-0.2); BASOPHILS % (AUTO) 0.8 % (0.0-2.0); EOSINOPHILS # (AUTO) 0.1 K/uL (0.0-0.7); EOSINOPHILS % (AUTO) 1.2 % (0.0-6.0); HEMATOCRIT 25 % (39-51); HEMOGLOBIN 7.8 g/dL (13.5-17.5); LYMPHOCYTES # (AUTO) 1.2 K/uL (0.8-4.8); LYMPHOCYTES % (AUTO) 12.1 % (20.0-44.0); MEAN CORPUSCULAR HEMOGLOBIN 27 PG (26.0-33.0); MEAN CORPUSCULAR HGB CONC 32 g/dl (31.0-36.0); MEAN CORPUSCULAR VOLUME 85 fL (80-96); MONOCYTES # (AUTO) 0.9 K/uL (0.1-1.30); MONOCYTES % (AUTO) 8.5 % (2.0-12.0); NEUTROPHILS % (AUTO) 77.4 % (43.0-81.0); PLATELET COUNT (AUTO) 162 K/uL (150-450); RED BLOOD CELL COUNT(AUTO) 2.89 MIL/uL (4.5-6.0); RED CELL DISTRIBUTION WIDTH 18.4 % (11.5-15.0); WHITE BLOOD COUNT (AUTO) 10.4 K/uL (4.3-11.0)
[2024-06-17] MEDS ORDERED: ACETAMINOPHEN ES 500 MG TABLET ONE ×2 (14:25→14:26)
[2024-06-17 14:35] LABS: INR 1.38 (0.91-1.10); PARTIAL THROMBOPLASTIN TIME 34.5 SEC (24.3-34.3); PROTHROMBIN TIME 14.3 SECS (9.2-11.1)
[2024-06-17 14:37] LABS: ALANINE AMINOTRANSFERASE 7 U/L (12-78); ALBUMIN 2.4 g/dL (3.4-5.0); ALKALINE PHOSPHATASE 65 U/L (46-116); ASPARTATE AMINOTRANSFERASE 9 U/L (15-37); BILIRUBIN,DIRECT 0.1 mg/dL (0.0-0.2); BILIRUBIN,TOTAL 0.3 mg/dL (0.2-1.0); CALCIUM, SERUM 9.4 mg/dL (8.5-10.1); CARBON DIOXIDE 29 mmol/L (21-32); CHLORIDE 101 mmol/L (98-107); CREATININE 4.9 mg/dL (0.6-1.3); GLUCOSE 110 mg/dL (74-106); SODIUM SERUM 141 mmol/L (136-145); TOTAL PROTEIN, SERUM 6.9 g/dL (6.4-8.2); UREA NITROGEN, BLOOD 25 mg/dL (7-18)
[2024-06-17 14:39] LABS: LACTIC ACID 1.7 mmol/L (0.4-2.0)
[2024-06-17] MEDS: CEFEPIME 1 GM in IV D5W 50 ML IV ONE (14:39)
[2024-06-17] MEDS: IV NS 0.9% 1,000 ML BAG IV ONE (14:39)
[2024-06-17] MEDS: ACETAMINOPHEN ES 500 MG TABLET PO ONE (14:40)
[2024-06-17 14:42] LABS: POTASSIUM 2.7 mmol/L (3.5-5.1)
[2024-06-17] MEDS: VANCOMYCIN 1 GM in IV D5W 250 ML IV ONE (14:52)
[2024-06-17] MEDS: AZITHROMYCIN 500 MG in IV D5W 250 ML IV ONE (15:00)
[2024-06-17] MEDS ORDERED: IPRA3AMP23 IH (15:18)
[2024-06-17] MEDS ORDERED: FERR220E2 PO (15:18)
[2024-06-17] MEDS ORDERED: CELE100C PO (15:18)
[2024-06-17] MEDS ORDERED: DARB40DI SQ (15:18)
[2024-06-17] MEDS: POTASSIUM CHLORIDE 20 MEQ POWDER PACKET PO ONE (15:26)
[2024-06-17] MEDS: ASPIRIN 325 MG TABLET PO ONE (15:26)
[2024-06-17 18:09] VITALS: BP 103/49; TEMP 97.7; O2SAT 100
[2024-06-17 20:00] VITALS: BP 103/48; TEMP 97.9; O2SAT 95
[2024-06-17] MEDS ORDERED: ONDANSETRON HCL/PF 4 MG/2 ML VIAL IVP PRN (21:30)
[2024-06-17] MEDS: DOCUSATE SODIUM 100 MG CAPSULE PO SCH (21:30)
[2024-06-17] MEDS ORDERED: PRIMIDONE 50 MG TABLET PO PRN (21:30)
[2024-06-17] MEDS: APIXABAN 2.5 MG TABLET PO SCH (21:30)
[2024-06-17] MEDS ORDERED: GABAPENTIN 100 MG CAPSULE PO SCH (21:30)
[2024-06-17] MEDS: DOXAZOSIN MESYLATE (1 MG) 1 MG TABLET PO SCH (21:53)
[2024-06-17] MEDS: CINACALCET HCL 30 MG TABLET PO SCH (21:54)
[2024-06-17] MEDS: ATORVASTATIN 10 MG TABLET PO SCH (21:54)
[2024-06-17] MEDS ORDERED: IV NS 0.9% 1,000 ML BAG IV PRN (22:00)
[2024-06-17] MEDS: IV NS 0.9% 1,000 ML IV PRN (22:57)
[2024-06-18] VITALS (8 sets, daily range): BP systolic 93–109; BP diastolic 53–81; TEMP 98–98.8; O2SAT 95–99
[2024-06-18] MEDS ORDERED: VANCOMYCIN 500 MG in IV D5W 100 ML IV PRN (07:30)
[2024-06-18 07:38] LABS: BASOPHILS % (AUTO) 0.5 % (0.0-2.0); EOSINOPHILS # (AUTO) 0.2 K/uL (0.0-0.7); EOSINOPHILS % (AUTO) 2.2 % (0.0-6.0); HEMATOCRIT 23 % (39-51); HEMOGLOBIN 7.4 g/dL (13.5-17.5); LYMPHOCYTES # (AUTO) 1.5 K/uL (0.8-4.8); LYMPHOCYTES % (AUTO) 17.1 % (20.0-44.0); MEAN CORPUSCULAR HEMOGLOBIN 28 PG (26.0-33.0); MEAN CORPUSCULAR HGB CONC 32 g/dl (31.0-36.0); MEAN CORPUSCULAR VOLUME 85 fL (80-96); MONOCYTES # (AUTO) 0.7 K/uL (0.1-1.30); MONOCYTES % (AUTO) 8.2 % (2.0-12.0); NEUTROPHILS # (AUTO) 6.5 K/uL (1.8-8.9); PLATELET COUNT (AUTO) 155 K/uL (150-450); RED CELL DISTRIBUTION WIDTH 18.5 % (11.5-15.0)
[2024-06-18 07:50] LABS: CARBON DIOXIDE 29 mmol/L (21-32); CHLORIDE 102 mmol/L (98-107); CREATININE 5.1 mg/dL (0.6-1.3); GLUCOSE 86 mg/dL (74-106); MAGNESIUM 1.6 mg/dL (1.8-2.4); PHOSPHORUS 3.8 mg/dL (2.5-4.9); SODIUM SERUM 139 mmol/L (136-145); UREA NITROGEN, BLOOD 29 mg/dL (7-18)
[2024-06-18 07:52] LABS: POTASSIUM 2.7 mmol/L (3.5-5.1)
[2024-06-18] MEDS ORDERED: CELECOXIB 100 MG CAPSULE PO SCH (09:00)
[2024-06-18] MEDS: FERROUS SULFATE UDC 300 MG/5 ML UDC PO SCH (09:29)
[2024-06-18] MEDS: CHOLECALCIFEROL 1,000 UNIT TABLET (VIT D3) PO SCH (09:29)
[2024-06-18] MEDS: MONTELUKAST SODIUM (10MG) 10 MG TABLET PO SCH (09:29)
[2024-06-18] MEDS: GABAPENTIN 100 MG CAPSULE PO SCH (09:30)
[2024-06-18] MEDS: LORATADINE 10 MG TABLET PO SCH (09:30)
[2024-06-18] MEDS: POTASSIUM CHLORIDE 20 MEQ TAB.PRT.SR PO SCH (10:43)
[2024-06-18] MEDS: MAGNESIUM OXIDE 400 MG TABLET PO ONE (11:15)
[2024-06-18] MEDS: GUAIFENESIN LA 600 MG TABLET.SA PO SCH (11:58)
[2024-06-18] MEDS: POLYVINYL ALCOHOL 15 ML BOTTLE EACHEYE SCH (16:06)
[2024-06-18] MEDS: CEFEPIME 1 GM in IV D5W 50 ML IV SCH (17:07)
[2024-06-18] MEDS: EPOETIN ALFA (10,000 UNIT) 10,000 UNIT/ML VIAL SQ ONE (17:42)
[2024-06-18] MEDS: IPRATROPIUM NEB FS 0.5 MG/2.5 ML AMPUL.NEB NEB SCH (20:14)
[2024-06-18] MEDS: ALBUTEROL FS 2.5 MG/0.5 ML VIAL.NEB NEB SCH (20:14)
[2024-06-19] VITALS (12 sets, daily range): BP systolic 92–112; BP diastolic 50–66; TEMP 97.5–98.5; O2SAT 93–100
[2024-06-19 06:23] LABS: BASOPHILS # (AUTO) 0.1 K/uL (0.0-0.2); BASOPHILS % (AUTO) 0.8 % (0.0-2.0); EOSINOPHILS # (AUTO) 0.2 K/uL (0.0-0.7); EOSINOPHILS % (AUTO) 2.1 % (0.0-6.0); HEMATOCRIT 24 % (39-51); HEMOGLOBIN 7.6 g/dL (13.5-17.5); LYMPHOCYTES # (AUTO) 1.1 K/uL (0.8-4.8); LYMPHOCYTES % (AUTO) 13.8 % (20.0-44.0); MEAN CORPUSCULAR HEMOGLOBIN 27 PG (26.0-33.0); MEAN CORPUSCULAR HGB CONC 32 g/dl (31.0-36.0); MEAN CORPUSCULAR VOLUME 86 fL (80-96); MONOCYTES # (AUTO) 0.8 K/uL (0.1-1.30); MONOCYTES % (AUTO) 9.4 % (2.0-12.0); NEUTROPHILS # (AUTO) 6.1 K/uL (1.8-8.9); NEUTROPHILS % (AUTO) 73.9 % (43.0-81.0); PLATELET COUNT (AUTO) 140 K/uL (150-450); RED BLOOD CELL COUNT(AUTO) 2.78 MIL/uL (4.5-6.0); RED CELL DISTRIBUTION WIDTH 18.8 % (11.5-15.0); WHITE BLOOD COUNT (AUTO) 8.2 K/uL (4.3-11.0)
[2024-06-19 06:46] LABS: IRON, SERUM 22 ug/dl (50-175); TOTAL IRON BINDING CAPACITY 87 ug/dl (250-450)
[2024-06-19 07:27] LABS: CALCIUM, SERUM 8.8 mg/dL (8.5-10.1); CARBON DIOXIDE 26 mmol/L (21-32); CHLORIDE 102 mmol/L (98-107); CREATININE 6.2 mg/dL (0.6-1.3); GLUCOSE 105 mg/dL (74-106); POTASSIUM 3.6 mmol/L (3.5-5.1); SODIUM SERUM 138 mmol/L (136-145); UREA NITROGEN, BLOOD 35 mg/dL (7-18)
[2024-06-19 07:37] LABS: FERRITIN 1436 ng/mL (8-388)
[2024-06-19 07:55] LABS: OCCULT BLOOD STOOL NEGATIVE (NEGATIVE)
[2024-06-19] MEDS ORDERED: NEPRO VAN 237 ML CAN PO PRN (10:30)
[2024-06-19] MEDS: THERAHONEY GEL 1.5 OZ TUBE TP SCH (17:24)
[2024-06-19] MEDS: ACETAMINOPHEN 325 MG TABLET PO PRN (17:26)
[2024-06-20] VITALS (14 sets, daily range): BP systolic 101–113; BP diastolic 55–69; TEMP 97.8–98.6; O2SAT 94–100
[2024-06-20 10:15] LABS: BASOPHILS % (AUTO) 0.4 % (0.0-2.0); EOSINOPHILS # (AUTO) 0.3 K/uL (0.0-0.7); EOSINOPHILS % (AUTO) 2.8 % (0.0-6.0); HEMATOCRIT 24 % (39-51); HEMOGLOBIN 7.7 g/dL (13.5-17.5); LYMPHOCYTES # (AUTO) 1.5 K/uL (0.8-4.8); LYMPHOCYTES % (AUTO) 16.5 % (20.0-44.0); MEAN CORPUSCULAR HEMOGLOBIN 28 PG (26.0-33.0); MEAN CORPUSCULAR HGB CONC 32 g/dl (31.0-36.0); MEAN CORPUSCULAR VOLUME 87 fL (80-96); MONOCYTES # (AUTO) 0.8 K/uL (0.1-1.30); MONOCYTES % (AUTO) 9.5 % (2.0-12.0); NEUTROPHILS # (AUTO) 6.3 K/uL (1.8-8.9); NEUTROPHILS % (AUTO) 70.8 % (43.0-81.0); PLATELET COUNT (AUTO) 138 K/uL (150-450); RED BLOOD CELL COUNT(AUTO) 2.78 MIL/uL (4.5-6.0); RED CELL DISTRIBUTION WIDTH 19.7 % (11.5-15.0); WHITE BLOOD COUNT (AUTO) 8.9 K/uL (4.3-11.0)
[2024-06-20 10:16] LABS: CALCIUM, SERUM 9.1 mg/dL (8.5-10.1); CARBON DIOXIDE 27 mmol/L (21-32); CHLORIDE 102 mmol/L (98-107); GLUCOSE 116 mg/dL (74-106); SODIUM SERUM 139 mmol/L (136-145); UREA NITROGEN, BLOOD 45 mg/dL (7-18)
[2024-06-20] MEDS: ALBUMIN 25% 25 GM in PREMIX 1 EA IV PRN (18:13)
[2024-06-20] MEDS: VANCOMYCIN 1 GM in IV D5W 250ml IV ONE (19:36)
[2024-06-21] VITALS (9 sets, daily range): BP systolic 108–112; BP diastolic 64–70; TEMP 97.1–99; O2SAT 95–100
[2024-06-21] MEDS ORDERED: VANCOMYCIN 500 MG in IV D5W 100 ML IV PRN (06:00)
[2024-06-21 07:37] LABS: MAGNESIUM 1.9 mg/dL (1.8-2.4); PHOSPHORUS 3.8 mg/dL (2.5-4.9)
[2024-06-21 08:38] LABS: BASOPHILS # (AUTO) 0.1 K/uL (0.0-0.2); BASOPHILS % (AUTO) 0.6 % (0.0-2.0); EOSINOPHILS # (AUTO) 0.2 K/uL (0.0-0.7); EOSINOPHILS % (AUTO) 2.1 % (0.0-6.0); HEMATOCRIT 24 % (39-51); HEMOGLOBIN 7.6 g/dL (13.5-17.5); LYMPHOCYTES # (AUTO) 1.1 K/uL (0.8-4.8); LYMPHOCYTES % (AUTO) 12.8 % (20.0-44.0); MEAN CORPUSCULAR HEMOGLOBIN 27 PG (26.0-33.0); MEAN CORPUSCULAR HGB CONC 32 g/dl (31.0-36.0); MEAN CORPUSCULAR VOLUME 87 fL (80-96); MONOCYTES # (AUTO) 0.8 K/uL (0.1-1.30); MONOCYTES % (AUTO) 9.1 % (2.0-12.0); NEUTROPHILS # (AUTO) 6.3 K/uL (1.8-8.9); NEUTROPHILS % (AUTO) 75.4 % (43.0-81.0); PLATELET COUNT (AUTO) 142 K/uL (150-450); RED BLOOD CELL COUNT(AUTO) 2.77 MIL/uL (4.5-6.0); RED CELL DISTRIBUTION WIDTH 19.4 % (11.5-15.0); WHITE BLOOD COUNT (AUTO) 8.3 K/uL (4.3-11.0)
[2024-06-21 09:16] LABS: CALCIUM, SERUM 8.7 mg/dL (8.5-10.1); CARBON DIOXIDE 22 mmol/L (21-32); CHLORIDE 99 mmol/L (98-107); CREATININE 5.7 mg/dL (0.6-1.3); GLUCOSE 90 mg/dL (74-106); POTASSIUM 2.9 mmol/L (3.5-5.1); SODIUM SERUM 136 mmol/L (136-145); UREA NITROGEN, BLOOD 31 mg/dL (7-18)
[2024-06-21] MEDS ORDERED: VANC500F2 IV (12:41)
[2024-06-21] MEDS ORDERED: CEFE1FRO IV (12:41)
== END 2024-06-21 15:47 | DRG 871 ==
LOC: ER 13:29 → TELE1 16:36 → MEDSG1 06-21 09:32
PROVIDERS: ADMIT Nurse Practitioner Acute Care; ATTEND Internal Medicine
PROC: 5A1D70Z Performance of Urinary Filtration, Intermittent, Less than 6 Hours Per Day (ICD-10-PCS; principal; 2024-06-20)
DX: A41.9 Sepsis, unspecified organism (principal); I21.A1 Myocardial infarction type 2; L89.153 Pressure ulcer of sacral region, stage 3; N18.6 End stage renal disease; J18.9 Pneumonia, unspecified organism; E44.0 Moderate protein-calorie malnutrition; I13.2 Hypertensive heart and chronic kidney disease with heart failure and with stage 5 chronic kidney disease, or end stage renal disease; D68.59 Other primary thrombophilia; G20.A1 Parkinson's disease without dyskinesia, without mention of fluctuations; Z99.2 Dependence on renal dialysis; D64.9 Anemia, unspecified; I50.9 Heart failure, unspecified; M19.90 Unspecified osteoarthritis, unspecified site; E78.5 Hyperlipidemia, unspecified; I48.91 Unspecified atrial fibrillation; Z79.01 Long term (current) use of anticoagulants; Z79.899 Other long term (current) drug therapy; Z95.0 Presence of cardiac pacemaker; E87.6 Hypokalemia; E88.09 Other disorders of plasma-protein metabolism, not elsewhere classified; K57.30 Diverticulosis of large intestine without perforation or abscess without bleeding; M89.8X9 Other specified disorders of bone, unspecified site
CPT/HCPCS: 36415; 71045-TC; 80048-TC; 80076-TC; 80202-TC; 82272-TC; 82607-TC; 82728-TC; 83540-TC; 83605-TC; 83735-TC; 84100-TC; 84484-TC; 85025-TC; 85730-TC; 87040-TC; 87081-TC; 90935-TC; 92526; 92611-TC; 93307-TC; 94760-TC; 94762-TC; 94799-TC; A4216; A4223; G0378; J0456; J0692; J0885; J3370; J7030; J7040; J7060; P9047

== ENCOUNTER 2024-08-02 15:57 | Inpatient (IN) | payer OTHER, MEDICARE ==
[~2024-08-02] VITALS: Ht 170.2 cm; Wt 70.4 kg
[~2024-08-02 15:57] MED LIST changes: -AMIN30LI2 PO; +CEFE1FRO IV; +CELE100C PO; +DARB40DI SQ; +FERR220E2 PO; -FLUT16SP BNOSTRILS; -FOLI0.8T2 PO; -GLUC1KIT IM; -HYDR-4076 PO; +IPRA3AMP23 IH; -LISI10TA29 PO; -POVI3780 TP; -SEVELAMER CARBONATE PO; +VANC500F2 IV; -ZINC57OI4 TP
[2024-08-02 17:16] LABS: ABG BASE EXCESS -10.5 mmol/L (-2.0-3.0); ABG OXYGEN SATURATION 90.5 % (94.0-98.0); ABG PCO2 57.7 mmHg (35.0-48.0); ABG PH 7.129 (7.350-7.450); ABG PO2 70.4 mmHg (83.0-108.0); ABG TOTAL HEMOGLOBIN 10.6 G/dL (13.5-17.5); COHb 0.1 % (0.5-1.5); MetHb 0.1 % (0.0-1.5); O2Hb 90.3 % (94.0-97.0); SITE, ABG RIGHT RADIAL
[2024-08-02 17:22] LABS: BASOPHILS % (AUTO) 0.1 % (0.0-2.0); HEMATOCRIT 33 % (39-51); HEMOGLOBIN 9.7 g/dL (13.5-17.5); LYMPHOCYTES # (AUTO) 0.9 K/uL (0.8-4.8); LYMPHOCYTES % (AUTO) 5.4 % (20.0-44.0); MEAN CORPUSCULAR HEMOGLOBIN 28 PG (26.0-33.0); MEAN CORPUSCULAR HGB CONC 30 g/dl (31.0-36.0); MEAN CORPUSCULAR VOLUME 93 fL (80-96); MONOCYTES # (AUTO) 1.2 K/uL (0.1-1.30); MONOCYTES % (AUTO) 7.8 % (2.0-12.0); NEUTROPHILS # (AUTO) 13.8 K/uL (1.8-8.9); NEUTROPHILS % (AUTO) 86.7 % (43.0-81.0); PLATELET COUNT (AUTO) 269 K/uL (150-450); RED CELL DISTRIBUTION WIDTH 22.1 % (11.5-15.0)
[2024-08-02 17:32] LABS: SERUM AMMONIA 48 umol/L (11-32)
[2024-08-02 17:38] LABS: ALANINE AMINOTRANSFERASE 10 U/L (12-78); ALBUMIN 2.8 g/dL (3.4-5.0); ALCOHOL, BLOOD < 3 mg/dL (0-10); ALKALINE PHOSPHATASE 82 U/L (46-116); ASPARTATE AMINOTRANSFERASE 17 U/L (15-37); BILIRUBIN,DIRECT 0.2 mg/dL (0.0-0.2); BILIRUBIN,TOTAL 0.6 mg/dL (0.2-1.0); CALCIUM, SERUM 9.2 mg/dL (8.5-10.1); CARBON DIOXIDE 21 mmol/L (21-32); CHLORIDE 104 mmol/L (98-107); GLUCOSE 102 mg/dL (74-106); POTASSIUM 4.3 mmol/L (3.5-5.1); SODIUM SERUM 141 mmol/L (136-145); TOTAL PROTEIN, SERUM 7.1 g/dL (6.4-8.2); UREA NITROGEN, BLOOD 52 mg/dL (7-18)
[2024-08-02 17:41] LABS: INR 1.21 (0.91-1.10); PARTIAL THROMBOPLASTIN TIME 30.2 SEC (24.3-34.3); PROTHROMBIN TIME 12.7 SECS (9.2-11.1)
[2024-08-02] MEDS ORDERED: ONDA-97 PO (18:14)
[2024-08-02] MEDS ORDERED: ACET160L44 PO (18:14)
[2024-08-02] MEDS ORDERED: CARB-273 EACHEYE (18:14)
[2024-08-02] MEDS ORDERED: TAMS-12 PO (18:14)
[2024-08-02] MEDS ORDERED: MUCOMYST NEB (18:14)
[2024-08-02] MEDS ORDERED: IPRA3AMP23 IH (18:14)
[2024-08-02] MEDS ORDERED: FERR325T24 PO (18:14)
[2024-08-02] MEDS ORDERED: ZINC220C6 PO (18:14)
[2024-08-02] MEDS ORDERED: FOLI0.8T2 PO (18:14)
[2024-08-02] MEDS ORDERED: GUAI100S9 PO (18:14)
[2024-08-02] MEDS ORDERED: CALC667C6 PO (18:14)
[2024-08-02] MEDS ORDERED: HONE44PA TP (18:14)
[2024-08-02] MEDS: ONDANSETRON HCL/PF 4 MG/2 ML VIAL IVP ONE (18:30)
[2024-08-02] MEDS ORDERED: ONDANSETRON HCL/PF 4 MG/2 ML VIAL ONE (18:47)
[2024-08-02] MEDS ORDERED: LORAZEPAM INJ 2 MG/ML VIAL ONE ×2 (18:55→18:59)
[2024-08-02] MEDS: LORAZEPAM INJ 2 MG/ML VIAL IV ONE (19:02)
[2024-08-02] MEDS: PIPERACILLIN /TAZOBACTAM 3.375 G in IV D5W 50 ML IV ONE (19:44)
[2024-08-02] MEDS ORDERED: FENTANYL PF 100MCG/2ML AMPUL ONE (20:05)
[2024-08-02] MEDS: SODIUM BICARBONATE SYR 50 MEQ/50 ML DISP.SYRIN IV ONE (20:07)
[2024-08-02] MEDS: FENTANYL PF 100MCG/2ML AMPUL IV ONE (20:16)
[2024-08-02] MEDS ORDERED: ONDANSETRON HCL/PF 4 MG/2 ML VIAL IVP PRN (20:30)
[2024-08-02] MEDS ORDERED: ACETAMINOPHEN 650 MG/SUPP.RECT RC PRN (20:30)
[2024-08-02] MEDS ORDERED: PRIMIDONE 50 MG TABLET PO PRN (21:00)
[2024-08-02] MEDS ORDERED: Medication Not On Formulary EA (Ipratropium/Albuterol Sulfate (Duoneb 2.5-0.5 Mg/3 Ml So IH PRN (21:00)
[2024-08-02] MEDS: FUROSEMIDE 40 MG/4 ML VIAL IV ONE (21:44)
[2024-08-02] MEDS ORDERED: Medication Not On Formulary EA (Atorvastatin Calcium (Lipitor) 20 MG) PO SCH (22:00)
[2024-08-02 22:02] LABS: ABG BASE EXCESS -7.2 mmol/L (-2.0-3.0); ABG OXYGEN SATURATION 99.6 % (94.0-98.0); ABG PCO2 36.5 mmHg (35.0-48.0); ABG PH 7.316 (7.350-7.450); ABG PO2 338.2 mmHg (83.0-108.0); ABG TOTAL HEMOGLOBIN 10.4 G/dL (13.5-17.5); COHb 0.3 % (0.5-1.5); O2Hb 99.3 % (94.0-97.0); PEEP,BG 0 cm H2O; SITE, ABG LEFT RADIAL; VT, ABG 500 mL
[2024-08-02] MEDS ORDERED: IPRATROPIUM NEB FS 0.5 MG/2.5 ML AMPUL.NEB NEB PRN (23:00)
[2024-08-02] MEDS ORDERED: ALBUTEROL FS 2.5 MG/3 ML VIAL.NEB NEB PRN (23:00)
[2024-08-03] VITALS (40 sets, daily range): BP systolic 85–161; BP diastolic 40–106; TEMP 98.4–100.2; O2SAT 100
[2024-08-03] MEDS: ATORVASTATIN 10 MG TABLET PO SCH (00:14)
[2024-08-03] MEDS: CINACALCET HCL 30 MG TABLET PO SCH (00:14)
[2024-08-03] MEDS: PROPOFOL 100 ML IV PRN (00:23)
[2024-08-03] MEDS: TAMSULOSIN 0.4 MG CAP.SR.24H PO SCH (00:45)
[2024-08-03] MEDS ORDERED: IV NS 0.9% 250 ML IV PRN (01:00)
[2024-08-03] MEDS: PIPERACILLIN /TAZOBACTAM 2.25 G in IV D5W 50 ML IV SCH ×2 (04:33→12:42)
[2024-08-03] MEDS: PIPERCILLIN/TAZOBACTAM 2.25GM/D5W 50MLPB IV ONE (04:34)
[2024-08-03] MEDS ORDERED: PIPERACILLIN /TAZOBACTAM 3.375 G in IV D5W 50 ML IV SCH (05:00)
[2024-08-03 05:05] LABS: BASOPHILS % (AUTO) 0.2 % (0.0-2.0); EOSINOPHILS % (AUTO) 0.1 % (0.0-6.0); HEMATOCRIT 26 % (39-51); HEMOGLOBIN 8.4 g/dL (13.5-17.5); LYMPHOCYTES # (AUTO) 0.6 K/uL (0.8-4.8); LYMPHOCYTES % (AUTO) 5.5 % (20.0-44.0); MEAN CORPUSCULAR HEMOGLOBIN 29 PG (26.0-33.0); MEAN CORPUSCULAR HGB CONC 32 g/dl (31.0-36.0); MEAN CORPUSCULAR VOLUME 90 fL (80-96); MONOCYTES # (AUTO) 0.7 K/uL (0.1-1.30); MONOCYTES % (AUTO) 6.7 % (2.0-12.0); NEUTROPHILS # (AUTO) 8.9 K/uL (1.8-8.9); NEUTROPHILS % (AUTO) 87.5 % (43.0-81.0); PLATELET COUNT (AUTO) 190 K/uL (150-450); RED BLOOD CELL COUNT(AUTO) 2.89 MIL/uL (4.5-6.0); RED CELL DISTRIBUTION WIDTH 21.3 % (11.5-15.0); WHITE BLOOD COUNT (AUTO) 10.2 K/uL (4.3-11.0)
[2024-08-03 05:34] LABS: ALANINE AMINOTRANSFERASE 7 U/L (12-78); ALBUMIN 2.4 g/dL (3.4-5.0); ALKALINE PHOSPHATASE 66 U/L (46-116); ASPARTATE AMINOTRANSFERASE 13 U/L (15-37); BILIRUBIN,TOTAL 0.7 mg/dL (0.2-1.0); CALCIUM, SERUM 9.1 mg/dL (8.5-10.1); CARBON DIOXIDE 23 mmol/L (21-32); CHLORIDE 104 mmol/L (98-107); GLUCOSE 52 mg/dL (74-106); POTASSIUM 3.1 mmol/L (3.5-5.1); SODIUM SERUM 144 mmol/L (136-145); TOTAL PROTEIN, SERUM 5.9 g/dL (6.4-8.2); UREA NITROGEN, BLOOD 57 mg/dL (7-18)
[2024-08-03 05:35] LABS: CREATININE 8.2 mg/dL (0.6-1.3)
[2024-08-03] MEDS: FERROUS SULFATE (325 MG) 325 MG/TAB TABLET PO SCH (08:20)
[2024-08-03] MEDS: VIT B CMPLX 3/FA/VIT C/BIOTIN 1 TAB TABLET PO SCH (08:20)
[2024-08-03] MEDS: PANTOPRAZOLE 40 MG VIAL IV SCH (08:20)
[2024-08-03] MEDS: MONTELUKAST SODIUM (10MG) 10 MG TABLET PO SCH (08:21)
[2024-08-03] MEDS: GABAPENTIN 100 MG CAPSULE PO SCH (08:21)
[2024-08-03] MEDS: ZINC SULFATE 220 MG CAPSULE PO SCH (08:21)
[2024-08-03] MEDS: LACTULOSE 10 G/15 ML UDC (PYXIS) PO SCH (08:21)
[2024-08-03] MEDS: CALCIUM ACETATE 667 MG CAP/TAB PO SCH (08:21)
[2024-08-03] MEDS: DOCUSATE SODIUM 100 MG CAPSULE PO SCH (08:21)
[2024-08-03] MEDS: Z GUARD REMEDY 4 OZ OINT TP PRN (08:24)
[2024-08-03] MEDS: THERAHONEY GEL 1.5 OZ TUBE TP SCH (08:24)
[2024-08-03] MEDS ORDERED: Medication Not On Formulary EA (Zinc Sulfate (Zinc-220) 220 MG) PO SCH (09:00)
[2024-08-03] MEDS ORDERED: ATORVASTATIN 10 MG TABLET PO SCH (09:00)
[2024-08-03] MEDS ORDERED: Medication Not On Formulary EA (Docusate Sodium 200 MG) PO SCH (09:00)
[2024-08-03] MEDS ORDERED: VIT B CMPLX 3/FA/VIT C/BIOTIN 1 TAB TABLET PO SCH (09:00)
[2024-08-03] MEDS: CARBOXYMETHYLCELLULOSE SODIUM 0.4 ML DROPERETTE OP SCH (09:00)
[2024-08-03] MEDS ORDERED: CARBOXYMETHYLCELLULOSE SODIUM EACHEYE SCH (09:00)
[2024-08-03 09:09] LABS: ABG BASE EXCESS -4.7 mmol/L (-2.0-3.0); ABG OXYGEN SATURATION 95.2 % (94.0-98.0); ABG PCO2 24.5 mmHg (35.0-48.0); ABG PH 7.479 (7.350-7.450); ABG PO2 78.8 mmHg (83.0-108.0); ABG TOTAL HEMOGLOBIN 8.8 G/dL (13.5-17.5); COHb 0.3 % (0.5-1.5); MetHb 0.1 % (0.0-1.5); O2Hb 94.8 % (94.0-97.0); PEEP,BG 5 cm H2O; SITE, ABG RIGHT RADIAL; VT, ABG 500 mL
[2024-08-03] MEDS: POTASSIUM CL. PREMIX PERIPHER. 50 ML IV SCH (10:45)
[2024-08-03] MEDS: NEPRO 1,000 ML BOTTLE GT PRN (12:04)
[2024-08-03] MEDS: NOREPINEPHRINE 8 MG in IV D5W 242 ML IV PRN (21:41)
[2024-08-03] MEDS: NOREPINEPHRINE 8MG/250ML RTU 250 ML IV ONE (21:49)
[2024-08-03] MEDS ORDERED: CEFEPIME 1 GM VIAL ONE (21:59)
[2024-08-04] VITALS (36 sets, daily range): BP systolic 93–131; BP diastolic 42–80; TEMP 98.3–98.8; O2SAT 96–100
[2024-08-04] MEDS: CEFEPIME 1 GM in IV D5W 50 ML IV SCH (00:27)
[2024-08-04] MEDS: ATORVASTATIN 10 MG TABLET GT SCH (00:30)
[2024-08-04] MEDS: CINACALCET HCL 30 MG TABLET GT SCH (00:33)
[2024-08-04] MEDS: TAMSULOSIN 0.4 MG CAP.SR.24H GT SCH (00:34)
[2024-08-04] MEDS: VANCOMYCIN 1 GM /D5W 250 ML PB IV ONE (00:42)
[2024-08-04] MEDS: VANCOMYCIN 1 GM in IV NS 0.9% 250 ML IV ONE (01:14)
[2024-08-04 04:47] LABS: BASOPHILS % (AUTO) 0.2 % (0.0-2.0); EOSINOPHILS % (AUTO) 0.2 % (0.0-6.0); HEMATOCRIT 29 % (39-51); HEMOGLOBIN 8.9 g/dL (13.5-17.5); LYMPHOCYTES # (AUTO) 1.5 K/uL (0.8-4.8); LYMPHOCYTES % (AUTO) 12.2 % (20.0-44.0); MEAN CORPUSCULAR HEMOGLOBIN 28 PG (26.0-33.0); MEAN CORPUSCULAR HGB CONC 31 g/dl (31.0-36.0); MEAN CORPUSCULAR VOLUME 89 fL (80-96); MONOCYTES # (AUTO) 1.4 K/uL (0.1-1.30); MONOCYTES % (AUTO) 10.8 % (2.0-12.0); NEUTROPHILS # (AUTO) 9.6 K/uL (1.8-8.9); NEUTROPHILS % (AUTO) 76.6 % (43.0-81.0); PLATELET COUNT (AUTO) 208 K/uL (150-450); RED BLOOD CELL COUNT(AUTO) 3.23 MIL/uL (4.5-6.0); RED CELL DISTRIBUTION WIDTH 21.4 % (11.5-15.0); WHITE BLOOD COUNT (AUTO) 12.6 K/uL (4.3-11.0)
[2024-08-04 05:21] LABS: ALANINE AMINOTRANSFERASE < 6 U/L (12-78); ALBUMIN 2.4 g/dL (3.4-5.0); ALKALINE PHOSPHATASE 83 U/L (46-116); ASPARTATE AMINOTRANSFERASE 15 U/L (15-37); BILIRUBIN,TOTAL 0.6 mg/dL (0.2-1.0); CALCIUM, SERUM 8.8 mg/dL (8.5-10.1); CARBON DIOXIDE 28 mmol/L (21-32); CHLORIDE 101 mmol/L (98-107); CREATININE 5.3 mg/dL (0.6-1.3); GLUCOSE 136 mg/dL (74-106); POTASSIUM 3.1 mmol/L (3.5-5.1); SODIUM SERUM 138 mmol/L (136-145); TOTAL PROTEIN, SERUM 6.5 g/dL (6.4-8.2); UREA NITROGEN, BLOOD 31 mg/dL (7-18)
[2024-08-04] MEDS: LACTULOSE 10 G/15 ML UDC (PYXIS) GT SCH (08:12)
[2024-08-04] MEDS: VIT B CMPLX 3/FA/VIT C/BIOTIN 1 TAB TABLET GT SCH (08:12)
[2024-08-04] MEDS: DOCUSATE SODIUM LIQ 100 MG/10 ML UDC GT SCH (08:12)
[2024-08-04] MEDS: CALCIUM ACETATE 667 MG CAP/TAB GT SCH (08:12)
[2024-08-04] MEDS: FERROUS SULFATE (325 MG) 325 MG/TAB TABLET GT SCH (08:13)
[2024-08-04] MEDS: MONTELUKAST SODIUM (10MG) 10 MG TABLET GT SCH (08:13)
[2024-08-04] MEDS: GABAPENTIN 100 MG CAPSULE GT SCH (08:17)
[2024-08-04] MEDS: ZINC SULFATE 220 MG CAPSULE GT SCH (08:17)
[2024-08-04] MEDS: PROSOURCE / PROSTAT (PYXIS) 30 ML UDC GT SCH (09:26)
[2024-08-04] MEDS ORDERED: POTASSIUM CHLORIDE 20 MEQ TAB.PRT.SR PO SCH (09:30)
[2024-08-04] MEDS: POTASSIUM CHLORIDE 20 MEQ POWDER PACKET GT ONE (10:05)
[2024-08-04] MEDS: NEPRO 1,000 ML BOTTLE GT PRN (15:34)
[2024-08-04] MEDS: VANCOMYCIN POST DIALYSIS 500MG IV PRN (21:48)
[2024-08-05] VITALS (42 sets, daily range): BP systolic 85–145; BP diastolic 42–91; TEMP 97.8–98.7; O2SAT 92–100
[2024-08-05 04:40] LABS: BASOPHILS % (AUTO) 0.2 % (0.0-2.0); EOSINOPHILS % (AUTO) 0.3 % (0.0-6.0); HEMATOCRIT 28 % (39-51); HEMOGLOBIN 8.9 g/dL (13.5-17.5); LYMPHOCYTES # (AUTO) 0.7 K/uL (0.8-4.8); MEAN CORPUSCULAR HEMOGLOBIN 29 PG (26.0-33.0); MEAN CORPUSCULAR HGB CONC 32 g/dl (31.0-36.0); MEAN CORPUSCULAR VOLUME 89 fL (80-96); MONOCYTES # (AUTO) 1.3 K/uL (0.1-1.30); MONOCYTES % (AUTO) 11.7 % (2.0-12.0); NEUTROPHILS # (AUTO) 9.1 K/uL (1.8-8.9); NEUTROPHILS % (AUTO) 81.8 % (43.0-81.0); PLATELET COUNT (AUTO) 143 K/uL (150-450); RED CELL DISTRIBUTION WIDTH 21.2 % (11.5-15.0); WHITE BLOOD COUNT (AUTO) 11.2 K/uL (4.3-11.0)
[2024-08-05 04:55] LABS: ALANINE AMINOTRANSFERASE 7 U/L (12-78); ALBUMIN 2.3 g/dL (3.4-5.0); ALKALINE PHOSPHATASE 76 U/L (46-116); ASPARTATE AMINOTRANSFERASE 16 U/L (15-37); BILIRUBIN,TOTAL 0.5 mg/dL (0.2-1.0); CALCIUM, SERUM 9.5 mg/dL (8.5-10.1); CARBON DIOXIDE 25 mmol/L (21-32); CHLORIDE 103 mmol/L (98-107); CREATININE 4.4 mg/dL (0.6-1.3); GLUCOSE 133 mg/dL (74-106); POTASSIUM 3.3 mmol/L (3.5-5.1); SODIUM SERUM 138 mmol/L (136-145); TOTAL PROTEIN, SERUM 6.6 g/dL (6.4-8.2); UREA NITROGEN, BLOOD 26 mg/dL (7-18)
[2024-08-05] MEDS: PANTOPRAZOLE 40 MG VIAL IV SCH (08:29)
[2024-08-05] MEDS: POTASSIUM CHLORIDE 20 MEQ POWDER PACKET GT ONE (08:29)
[2024-08-05] MEDS ORDERED: POTASSIUM CHLORIDE 20 MEQ POWDER PACKET GT ONE (09:00)
[2024-08-05] MEDS ORDERED: PANTOPRAZOLE 40 MG/PACK PACK GT SCH (09:00)
[2024-08-05] MEDS: EPOETIN ALFA (10,000 UNIT) 10,000 UNIT/ML VIAL IV ONE (09:07)
[2024-08-05 09:25] LABS: ABG BASE EXCESS -0.3 mmol/L (-2.0-3.0); ABG PCO2 42.5 mmHg (35.0-48.0); ABG PH 7.384 (7.350-7.450); ABG PO2 111.5 mmHg (83.0-108.0); ABG TOTAL HEMOGLOBIN 9.7 G/dL (13.5-17.5); COHb 0.2 % (0.5-1.5); MetHb 0.3 % (0.0-1.5); O2Hb 97.5 % (94.0-97.0); SITE, ABG RIGHT RADIAL; VT, ABG 450 mL
[2024-08-05] MEDS: ALBUMIN 25% 25 GM in PREMIX 1 EA IV PRN (11:22)
[2024-08-05] MEDS: LACTULOSE 20 G/30 ML UDC GT SCH (12:07)
[2024-08-06] VITALS (42 sets, daily range): BP systolic 74–150; BP diastolic 38–82; TEMP 97.6–97.9; O2SAT 97–100
[2024-08-06 04:48] LABS: BASOPHILS % (AUTO) 0.1 % (0.0-2.0); EOSINOPHILS % (AUTO) 0.3 % (0.0-6.0); HEMATOCRIT 28 % (39-51); HEMOGLOBIN 8.7 g/dL (13.5-17.5); LYMPHOCYTES % (AUTO) 9.1 % (20.0-44.0); MEAN CORPUSCULAR HEMOGLOBIN 28 PG (26.0-33.0); MEAN CORPUSCULAR HGB CONC 31 g/dl (31.0-36.0); MEAN CORPUSCULAR VOLUME 89 fL (80-96); MONOCYTES # (AUTO) 1.3 K/uL (0.1-1.30); MONOCYTES % (AUTO) 11.5 % (2.0-12.0); NEUTROPHILS # (AUTO) 8.8 K/uL (1.8-8.9); PLATELET COUNT (AUTO) 150 K/uL (150-450); RED CELL DISTRIBUTION WIDTH 21.5 % (11.5-15.0); WHITE BLOOD COUNT (AUTO) 11.2 K/uL (4.3-11.0)
[2024-08-06 05:00] LABS: ALANINE AMINOTRANSFERASE 7 U/L (12-78); ALBUMIN 2.4 g/dL (3.4-5.0); ALKALINE PHOSPHATASE 72 U/L (46-116); ASPARTATE AMINOTRANSFERASE 11 U/L (15-37); BILIRUBIN,TOTAL 0.5 mg/dL (0.2-1.0); CALCIUM, SERUM 9.4 mg/dL (8.5-10.1); CARBON DIOXIDE 27 mmol/L (21-32); CHLORIDE 104 mmol/L (98-107); CREATININE 3.8 mg/dL (0.6-1.3); GLUCOSE 132 mg/dL (74-106); POTASSIUM 3.7 mmol/L (3.5-5.1); SODIUM SERUM 139 mmol/L (136-145); TOTAL PROTEIN, SERUM 6.4 g/dL (6.4-8.2); UREA NITROGEN, BLOOD 24 mg/dL (7-18)
[2024-08-06 05:44] LABS: SERUM AMMONIA 26 umol/L (11-32)
[2024-08-06 10:24] LABS: ABG BASE EXCESS 1.3 mmol/L (-2.0-3.0); ABG OXYGEN SATURATION 97.4 % (94.0-98.0); ABG PCO2 35.8 mmHg (35.0-48.0); ABG PH 7.462 (7.350-7.450); ABG PO2 93.9 mmHg (83.0-108.0); ABG TOTAL HEMOGLOBIN 9.4 G/dL (13.5-17.5); COHb 0.1 % (0.5-1.5); MetHb 0.3 % (0.0-1.5); PEEP,BG 5 cm H2O; SITE, ABG RIGHT RADIAL; VT, ABG 450 mL
[2024-08-06 23:23] LABS: BASOPHILS % (AUTO) 0.1 % (0.0-2.0); EOSINOPHILS % (AUTO) 0.3 % (0.0-6.0); HEMATOCRIT 30 % (39-51); HEMOGLOBIN 9.3 g/dL (13.5-17.5); LYMPHOCYTES # (AUTO) 0.8 K/uL (0.8-4.8); LYMPHOCYTES % (AUTO) 5.4 % (20.0-44.0); MEAN CORPUSCULAR HEMOGLOBIN 28 PG (26.0-33.0); MEAN CORPUSCULAR HGB CONC 31 g/dl (31.0-36.0); MEAN CORPUSCULAR VOLUME 90 fL (80-96); MONOCYTES # (AUTO) 1.7 K/uL (0.1-1.30); MONOCYTES % (AUTO) 11.2 % (2.0-12.0); NEUTROPHILS # (AUTO) 12.5 K/uL (1.8-8.9); PLATELET COUNT (AUTO) 159 K/uL (150-450); RED BLOOD CELL COUNT(AUTO) 3.36 MIL/uL (4.5-6.0); RED CELL DISTRIBUTION WIDTH 21.4 % (11.5-15.0); WHITE BLOOD COUNT (AUTO) 15.1 K/uL (4.3-11.0)
[2024-08-06 23:34] LABS: CARBON DIOXIDE 27 mmol/L (21-32); CHLORIDE 99 mmol/L (98-107); CREATININE 3.2 mg/dL (0.6-1.3); GLUCOSE 157 mg/dL (74-106); MAGNESIUM 1.7 mg/dL (1.8-2.4); POTASSIUM 3.1 mmol/L (3.5-5.1); SODIUM SERUM 132 mmol/L (136-145); UREA NITROGEN, BLOOD 22 mg/dL (7-18)
[2024-08-07] VITALS (99 sets, daily range): BP systolic 80–147; BP diastolic 38–98; TEMP 97.9–98.4; O2SAT 97–100
[2024-08-07] MEDS: POTASSIUM CL. PREMIX PERIPHER. 50 ML IV SCH (00:59)
[2024-08-07 05:23] LABS: BASOPHILS % (AUTO) 0.1 % (0.0-2.0); EOSINOPHILS % (AUTO) 0.3 % (0.0-6.0); HEMATOCRIT 29 % (39-51); HEMOGLOBIN 9.1 g/dL (13.5-17.5); LYMPHOCYTES % (AUTO) 6.8 % (20.0-44.0); MEAN CORPUSCULAR HEMOGLOBIN 28 PG (26.0-33.0); MEAN CORPUSCULAR HGB CONC 32 g/dl (31.0-36.0); MEAN CORPUSCULAR VOLUME 89 fL (80-96); MONOCYTES # (AUTO) 1.6 K/uL (0.1-1.30); MONOCYTES % (AUTO) 10.6 % (2.0-12.0); NEUTROPHILS # (AUTO) 12.1 K/uL (1.8-8.9); NEUTROPHILS % (AUTO) 82.2 % (43.0-81.0); PLATELET COUNT (AUTO) 191 K/uL (150-450); RED BLOOD CELL COUNT(AUTO) 3.23 MIL/uL (4.5-6.0); RED CELL DISTRIBUTION WIDTH 21.6 % (11.5-15.0); WHITE BLOOD COUNT (AUTO) 14.7 K/uL (4.3-11.0)
[2024-08-07 06:09] LABS: CALCIUM, SERUM 9.4 mg/dL (8.5-10.1); CARBON DIOXIDE 26 mmol/L (21-32); CHLORIDE 101 mmol/L (98-107); CREATININE 3.4 mg/dL (0.6-1.3); GLUCOSE 150 mg/dL (74-106); MAGNESIUM 1.8 mg/dL (1.8-2.4); POTASSIUM 3.3 mmol/L (3.5-5.1); SODIUM SERUM 137 mmol/L (136-145); UREA NITROGEN, BLOOD 26 mg/dL (7-18)
[2024-08-07] MEDS: NEUTRA PHOS 1 POWD.PACKET NG ONE ×2 (06:38→16:06)
[2024-08-07] MEDS ORDERED: NEUTRA PHOS 1 POWD.PACKET PO ONE (07:00)
[2024-08-07] MEDS: PANTOPRAZOLE 40 MG VIAL IV SCH (08:08)
[2024-08-07] MEDS: LACTULOSE 10 G/15 ML UDC (PYXIS) GT SCH (08:28)
[2024-08-07] MEDS ORDERED: LACTULOSE 20 G/30 ML UDC GT SCH (09:00)
[2024-08-07] MEDS ORDERED: PANTOPRAZOLE 40 MG/PACK PACK GT SCH (09:00)
[2024-08-07] MEDS: DIGOXIN INJ 0.5 MG/2 ML AMPUL IV SCH (11:56)
[2024-08-07] MEDS ORDERED: DC PROPOFOL WHEN EXTUBATED XX PRN (14:00)
[2024-08-07 16:31] LABS: ABG OXYGEN SATURATION 98.5 % (94.0-98.0); ABG PH 7.453 (7.350-7.450); ABG PO2 114.2 mmHg (83.0-108.0); ABG TOTAL HEMOGLOBIN 10.1 G/dL (13.5-17.5); COHb 0.1 % (0.5-1.5); O2Hb 98.4 % (94.0-97.0)
[2024-08-08] VITALS (95 sets, daily range): BP systolic 85–141; BP diastolic 36–65; TEMP 97.3–98.3; O2SAT 92–100
[2024-08-08 04:24] LABS: BASOPHILS % (AUTO) 0.2 % (0.0-2.0); EOSINOPHILS # (AUTO) 0.1 K/uL (0.0-0.7); EOSINOPHILS % (AUTO) 0.8 % (0.0-6.0); HEMATOCRIT 28 % (39-51); HEMOGLOBIN 8.9 g/dL (13.5-17.5); LYMPHOCYTES # (AUTO) 1.2 K/uL (0.8-4.8); LYMPHOCYTES % (AUTO) 9.5 % (20.0-44.0); MEAN CORPUSCULAR HEMOGLOBIN 28 PG (26.0-33.0); MEAN CORPUSCULAR HGB CONC 32 g/dl (31.0-36.0); MEAN CORPUSCULAR VOLUME 89 fL (80-96); MONOCYTES # (AUTO) 1.4 K/uL (0.1-1.30); MONOCYTES % (AUTO) 11.6 % (2.0-12.0); NEUTROPHILS # (AUTO) 9.7 K/uL (1.8-8.9); NEUTROPHILS % (AUTO) 77.9 % (43.0-81.0); PLATELET COUNT (AUTO) 159 K/uL (150-450); RED BLOOD CELL COUNT(AUTO) 3.13 MIL/uL (4.5-6.0); RED CELL DISTRIBUTION WIDTH 20.8 % (11.5-15.0); WHITE BLOOD COUNT (AUTO) 12.4 K/uL (4.3-11.0)
[2024-08-08 04:39] LABS: ALANINE AMINOTRANSFERASE < 6 U/L (12-78); ALBUMIN 2.4 g/dL (3.4-5.0); ALKALINE PHOSPHATASE 68 U/L (46-116); ASPARTATE AMINOTRANSFERASE 9 U/L (15-37); BILIRUBIN,TOTAL 0.5 mg/dL (0.2-1.0); CALCIUM, SERUM 9.1 mg/dL (8.5-10.1); CARBON DIOXIDE 31 mmol/L (21-32); CHLORIDE 103 mmol/L (98-107); CREATININE 3.4 mg/dL (0.6-1.3); GLUCOSE 114 mg/dL (74-106); POTASSIUM 3.3 mmol/L (3.5-5.1); SODIUM SERUM 137 mmol/L (136-145); TOTAL PROTEIN, SERUM 6.7 g/dL (6.4-8.2); UREA NITROGEN, BLOOD 28 mg/dL (7-18)
[2024-08-08] MEDS: PANTOPRAZOLE 40 MG/PACK PACK NG SCH (08:44)
[2024-08-08] MEDS: Sodium Phosphate 15 MMOL in IV NS 0.9% 245 ML IV SCH (10:28)
[2024-08-08] MEDS: EPOETIN ALFA (10,000 UNIT) 10,000 UNIT/ML VIAL IV ONE (14:14)
[2024-08-09] VITALS (100 sets, daily range): BP systolic 76–122; BP diastolic 27–90; TEMP 97.5–98; O2SAT 97–100
[2024-08-09 04:51] LABS: BASOPHILS % (AUTO) 0.2 % (0.0-2.0); EOSINOPHILS # (AUTO) 0.1 K/uL (0.0-0.7); EOSINOPHILS % (AUTO) 0.8 % (0.0-6.0); HEMATOCRIT 28 % (39-51); HEMOGLOBIN 9.1 g/dL (13.5-17.5); LYMPHOCYTES # (AUTO) 1.1 K/uL (0.8-4.8); LYMPHOCYTES % (AUTO) 8.1 % (20.0-44.0); MEAN CORPUSCULAR HEMOGLOBIN 29 PG (26.0-33.0); MEAN CORPUSCULAR HGB CONC 32 g/dl (31.0-36.0); MEAN CORPUSCULAR VOLUME 89 fL (80-96); MONOCYTES # (AUTO) 1.5 K/uL (0.1-1.30); MONOCYTES % (AUTO) 11.3 % (2.0-12.0); NEUTROPHILS # (AUTO) 10.8 K/uL (1.8-8.9); NEUTROPHILS % (AUTO) 79.6 % (43.0-81.0); PLATELET COUNT (AUTO) 179 K/uL (150-450); RED BLOOD CELL COUNT(AUTO) 3.18 MIL/uL (4.5-6.0); RED CELL DISTRIBUTION WIDTH 20.4 % (11.5-15.0); WHITE BLOOD COUNT (AUTO) 13.5 K/uL (4.3-11.0)
[2024-08-09 05:00] LABS: ALANINE AMINOTRANSFERASE 8 U/L (12-78); ALBUMIN 2.3 g/dL (3.4-5.0); ALKALINE PHOSPHATASE 69 U/L (46-116); ASPARTATE AMINOTRANSFERASE 12 U/L (15-37); BILIRUBIN,TOTAL 0.4 mg/dL (0.2-1.0); CALCIUM, SERUM 8.4 mg/dL (8.5-10.1); CARBON DIOXIDE 31 mmol/L (21-32); CHLORIDE 101 mmol/L (98-107); CREATININE 3.3 mg/dL (0.6-1.3); GLUCOSE 127 mg/dL (74-106); SODIUM SERUM 137 mmol/L (136-145); TOTAL PROTEIN, SERUM 6.5 g/dL (6.4-8.2); UREA NITROGEN, BLOOD 28 mg/dL (7-18)
[2024-08-09] MEDS: ACETAMINOPHEN 650 MG/20.3 ML UDC NG PRN (16:01)
[2024-08-09] MEDS: IV NS 0.9% 250 ML IV PRN (22:00)
[2024-08-10] VITALS (94 sets, daily range): BP systolic 77–125; BP diastolic 39–107; TEMP 97.6–98.2; O2SAT 81–100
[2024-08-10 04:57] LABS: BASOPHILS # (AUTO) 0.1 K/uL (0.0-0.2); BASOPHILS % (AUTO) 0.3 % (0.0-2.0); EOSINOPHILS # (AUTO) 0.1 K/uL (0.0-0.7); EOSINOPHILS % (AUTO) 0.4 % (0.0-6.0); HEMATOCRIT 29 % (39-51); HEMOGLOBIN 9.3 g/dL (13.5-17.5); LYMPHOCYTES # (AUTO) 1.1 K/uL (0.8-4.8); LYMPHOCYTES % (AUTO) 7.4 % (20.0-44.0); MEAN CORPUSCULAR HEMOGLOBIN 28 PG (26.0-33.0); MEAN CORPUSCULAR HGB CONC 32 g/dl (31.0-36.0); MEAN CORPUSCULAR VOLUME 89 fL (80-96); MONOCYTES # (AUTO) 1.6 K/uL (0.1-1.30); MONOCYTES % (AUTO) 10.5 % (2.0-12.0); NEUTROPHILS # (AUTO) 12.1 K/uL (1.8-8.9); NEUTROPHILS % (AUTO) 81.4 % (43.0-81.0); PLATELET COUNT (AUTO) 186 K/uL (150-450); RED CELL DISTRIBUTION WIDTH 20.1 % (11.5-15.0); WHITE BLOOD COUNT (AUTO) 14.9 K/uL (4.3-11.0)
[2024-08-10 05:17] LABS: ALANINE AMINOTRANSFERASE 8 U/L (12-78); ALBUMIN 2.3 g/dL (3.4-5.0); ALKALINE PHOSPHATASE 71 U/L (46-116); ASPARTATE AMINOTRANSFERASE 14 U/L (15-37); BILIRUBIN,TOTAL 0.4 mg/dL (0.2-1.0); CALCIUM, SERUM 9.4 mg/dL (8.5-10.1); CARBON DIOXIDE 29 mmol/L (21-32); CHLORIDE 101 mmol/L (98-107); CREATININE 3.4 mg/dL (0.6-1.3); GLUCOSE 171 mg/dL (74-106); POTASSIUM 3.1 mmol/L (3.5-5.1); SODIUM SERUM 138 mmol/L (136-145); TOTAL PROTEIN, SERUM 6.9 g/dL (6.4-8.2); UREA NITROGEN, BLOOD 30 mg/dL (7-18)
[2024-08-10] MEDS ORDERED: MIDODRINE HCL (5MG) 5 MG TABLET PO SCH (11:00)
[2024-08-10] MEDS: MIDODRINE HCL (5MG) 5 MG TABLET PO SCH (11:00)
[2024-08-10] MEDS: DOCUSATE SODIUM LIQ 100 MG/10 ML UDC GT SCH (21:55)
[2024-08-10] MEDS: GABAPENTIN 100 MG CAPSULE GT SCH (21:59)
[2024-08-11] VITALS (19 sets, daily range): BP systolic 92–135; BP diastolic 52–96; TEMP 97.2–98.2; O2SAT 93–100
[2024-08-11 04:58] LABS: BASOPHILS % (AUTO) 0.2 % (0.0-2.0); EOSINOPHILS # (AUTO) 0.1 K/uL (0.0-0.7); EOSINOPHILS % (AUTO) 0.7 % (0.0-6.0); HEMATOCRIT 30 % (39-51); HEMOGLOBIN 9.6 g/dL (13.5-17.5); LYMPHOCYTES % (AUTO) 6.6 % (20.0-44.0); MEAN CORPUSCULAR HEMOGLOBIN 29 PG (26.0-33.0); MEAN CORPUSCULAR HGB CONC 33 g/dl (31.0-36.0); MEAN CORPUSCULAR VOLUME 88 fL (80-96); MONOCYTES # (AUTO) 1.4 K/uL (0.1-1.30); MONOCYTES % (AUTO) 9.1 % (2.0-12.0); NEUTROPHILS # (AUTO) 12.7 K/uL (1.8-8.9); NEUTROPHILS % (AUTO) 83.4 % (43.0-81.0); PLATELET COUNT (AUTO) 199 K/uL (150-450); RED BLOOD CELL COUNT(AUTO) 3.36 MIL/uL (4.5-6.0); RED CELL DISTRIBUTION WIDTH 20.3 % (11.5-15.0); WHITE BLOOD COUNT (AUTO) 15.3 K/uL (4.3-11.0)
[2024-08-11 05:19] LABS: CALCIUM, SERUM 9.3 mg/dL (8.5-10.1); CARBON DIOXIDE 26 mmol/L (21-32); CHLORIDE 101 mmol/L (98-107); GLUCOSE 170 mg/dL (74-106); POTASSIUM 3.4 mmol/L (3.5-5.1); SODIUM SERUM 137 mmol/L (136-145); UREA NITROGEN, BLOOD 30 mg/dL (7-18)
[2024-08-11] MEDS: POTASSIUM CHLORIDE 20 MEQ POWDER PACKET GT ONE (06:31)
[2024-08-11] MEDS: POTASSIUM CHLORIDE 20 MEQ POWDER PACKET NG SCH (09:42)
[2024-08-12] VITALS: BP 112/59; TEMP 97.7; O2SAT 100
[2024-08-12 04:00] VITALS: BP 92/66; TEMP 98.1; O2SAT 99
[2024-08-12 06:40] LABS: BASOPHILS # (AUTO) 0.1 K/uL (0.0-0.2); BASOPHILS % (AUTO) 0.4 % (0.0-2.0); EOSINOPHILS # (AUTO) 0.2 K/uL (0.0-0.7); EOSINOPHILS % (AUTO) 1.3 % (0.0-6.0); HEMATOCRIT 30 % (39-51); HEMOGLOBIN 9.3 g/dL (13.5-17.5); LYMPHOCYTES # (AUTO) 1.1 K/uL (0.8-4.8); LYMPHOCYTES % (AUTO) 7.2 % (20.0-44.0); MEAN CORPUSCULAR HEMOGLOBIN 28 PG (26.0-33.0); MEAN CORPUSCULAR HGB CONC 31 g/dl (31.0-36.0); MEAN CORPUSCULAR VOLUME 88 fL (80-96); MONOCYTES # (AUTO) 1.4 K/uL (0.1-1.30); NEUTROPHILS # (AUTO) 12.9 K/uL (1.8-8.9); NEUTROPHILS % (AUTO) 82.1 % (43.0-81.0); PLATELET COUNT (AUTO) 211 K/uL (150-450); RED BLOOD CELL COUNT(AUTO) 3.36 MIL/uL (4.5-6.0); RED CELL DISTRIBUTION WIDTH 20.3 % (11.5-15.0); WHITE BLOOD COUNT (AUTO) 15.7 K/uL (4.3-11.0)
[2024-08-12 07:16] LABS: CALCIUM, SERUM 9.7 mg/dL (8.5-10.1); CARBON DIOXIDE 25 mmol/L (21-32); CHLORIDE 101 mmol/L (98-107); CREATININE 3.9 mg/dL (0.6-1.3); GLUCOSE 157 mg/dL (74-106); POTASSIUM 3.9 mmol/L (3.5-5.1); SODIUM SERUM 136 mmol/L (136-145); UREA NITROGEN, BLOOD 46 mg/dL (7-18)
[2024-08-12 08:00] VITALS: BP 107/54; TEMP 98.4; O2SAT 95
[2024-08-12] MEDS: LACTULOSE 20 G/30 ML UDC GT SCH (09:05)
[2024-08-12 12:00] VITALS: BP 147/74; TEMP 97.5; O2SAT 95
[2024-08-12] MEDS: PROSOURCE / PROSTAT (PYXIS) 30 ML UDC GT SCH (12:44)
[2024-08-12 16:00] VITALS: BP 117/53; TEMP 98.2; O2SAT 95
[2024-08-12 20:00] VITALS: BP 143/73; TEMP 98.5; O2SAT 99
[2024-08-13] VITALS: BP 128/68; TEMP 98.6; O2SAT 98
[2024-08-13 04:00] VITALS: BP 131/61; TEMP 98.5; O2SAT 99
[2024-08-13 06:56] LABS: BASOPHILS # (AUTO) 0.1 K/uL (0.0-0.2); BASOPHILS % (AUTO) 0.6 % (0.0-2.0); EOSINOPHILS # (AUTO) 0.2 K/uL (0.0-0.7); EOSINOPHILS % (AUTO) 1.3 % (0.0-6.0); HEMATOCRIT 29 % (39-51); HEMOGLOBIN 9.1 g/dL (13.5-17.5); LYMPHOCYTES # (AUTO) 1.3 K/uL (0.8-4.8); LYMPHOCYTES % (AUTO) 8.7 % (20.0-44.0); MEAN CORPUSCULAR HEMOGLOBIN 28 PG (26.0-33.0); MEAN CORPUSCULAR HGB CONC 32 g/dl (31.0-36.0); MEAN CORPUSCULAR VOLUME 87 fL (80-96); MONOCYTES # (AUTO) 1.3 K/uL (0.1-1.30); MONOCYTES % (AUTO) 8.9 % (2.0-12.0); NEUTROPHILS % (AUTO) 80.5 % (43.0-81.0); PLATELET COUNT (AUTO) 208 K/uL (150-450); RED BLOOD CELL COUNT(AUTO) 3.28 MIL/uL (4.5-6.0); RED CELL DISTRIBUTION WIDTH 19.8 % (11.5-15.0)
[2024-08-13 07:56] LABS: CALCIUM, SERUM 10.2 mg/dL (8.5-10.1); CARBON DIOXIDE 29 mmol/L (21-32); CHLORIDE 104 mmol/L (98-107); GLUCOSE 140 mg/dL (74-106); POTASSIUM 3.7 mmol/L (3.5-5.1); SODIUM SERUM 140 mmol/L (136-145); UREA NITROGEN, BLOOD 44 mg/dL (7-18)
[2024-08-13 08:00] VITALS: BP 93/54; TEMP 97.1; O2SAT 95
[2024-08-13 10:02] LABS: EOSINOPHILS % (MANUAL) 3 % (0-4); LYMPHOCYTES % (MANUAL) 11 % (16-48); MONOCYTES % (MANUAL) 3 % (0-11.0); NEUTROPHILS % (MANUAL) 83 (42-76)
[2024-08-13 10:04] LABS: ANISOCYTOSIS 1+; PLATELET ESTIMATE ADEQUATE
[2024-08-13 12:00] VITALS: BP 104/48; TEMP 97.3; O2SAT 96
[2024-08-13 16:00] VITALS: BP 106/60; TEMP 98.2; O2SAT 96
[2024-08-13 20:00] VITALS: BP 111/64; TEMP 99; O2SAT 97
[2024-08-14] VITALS (7 sets, daily range): BP systolic 98–137; BP diastolic 45–86; TEMP 97.5–98.6; O2SAT 97–100
[2024-08-14 07:38] LABS: BASOPHILS # (AUTO) 0.1 K/uL (0.0-0.2); BASOPHILS % (AUTO) 0.4 % (0.0-2.0); EOSINOPHILS # (AUTO) 0.1 K/uL (0.0-0.7); EOSINOPHILS % (AUTO) 0.9 % (0.0-6.0); HEMATOCRIT 31 % (39-51); HEMOGLOBIN 9.9 g/dL (13.5-17.5); LYMPHOCYTES # (AUTO) 1.2 K/uL (0.8-4.8); LYMPHOCYTES % (AUTO) 7.4 % (20.0-44.0); MEAN CORPUSCULAR HEMOGLOBIN 28 PG (26.0-33.0); MEAN CORPUSCULAR HGB CONC 32 g/dl (31.0-36.0); MEAN CORPUSCULAR VOLUME 88 fL (80-96); MONOCYTES # (AUTO) 1.2 K/uL (0.1-1.30); MONOCYTES % (AUTO) 7.4 % (2.0-12.0); NEUTROPHILS # (AUTO) 13.9 K/uL (1.8-8.9); NEUTROPHILS % (AUTO) 83.9 % (43.0-81.0); PLATELET COUNT (AUTO) 208 K/uL (150-450); RED BLOOD CELL COUNT(AUTO) 3.54 MIL/uL (4.5-6.0); WHITE BLOOD COUNT (AUTO) 16.6 K/uL (4.3-11.0)
[2024-08-14 07:46] LABS: CARBON DIOXIDE 25 mmol/L (21-32); CHLORIDE 100 mmol/L (98-107); CREATININE 4.8 mg/dL (0.6-1.3); GLUCOSE 176 mg/dL (74-106); POTASSIUM 3.5 mmol/L (3.5-5.1); SODIUM SERUM 138 mmol/L (136-145); UREA NITROGEN, BLOOD 58 mg/dL (7-18)
[2024-08-14 11:46] LABS: LYMPHOCYTES % (MANUAL) 9 % (16-48); MONOCYTES % (MANUAL) 8 % (0-11.0); NEUTROPHILS % (MANUAL) 83 (42-76)
[2024-08-14 11:47] LABS: PLATELET ESTIMATE ADEQUATE
[2024-08-14 11:49] LABS: ANISOCYTOSIS 1+; OVALOCYTES 1+
[2024-08-15] VITALS: BP 107/54; TEMP 98.8; O2SAT 96
[2024-08-15 04:00] VITALS: BP 110/64; TEMP 99.3; O2SAT 94
[2024-08-15 06:59] LABS: BASOPHILS % (AUTO) 0.2 % (0.0-2.0); EOSINOPHILS # (AUTO) 0.2 K/uL (0.0-0.7); EOSINOPHILS % (AUTO) 0.9 % (0.0-6.0); HEMATOCRIT 29 % (39-51); HEMOGLOBIN 9.4 g/dL (13.5-17.5); LYMPHOCYTES # (AUTO) 1.1 K/uL (0.8-4.8); LYMPHOCYTES % (AUTO) 6.1 % (20.0-44.0); MEAN CORPUSCULAR HEMOGLOBIN 28 PG (26.0-33.0); MEAN CORPUSCULAR HGB CONC 32 g/dl (31.0-36.0); MEAN CORPUSCULAR VOLUME 87 fL (80-96); MONOCYTES # (AUTO) 1.1 K/uL (0.1-1.30); MONOCYTES % (AUTO) 5.9 % (2.0-12.0); NEUTROPHILS # (AUTO) 15.8 K/uL (1.8-8.9); NEUTROPHILS % (AUTO) 86.9 % (43.0-81.0); PLATELET COUNT (AUTO) 198 K/uL (150-450); RED BLOOD CELL COUNT(AUTO) 3.35 MIL/uL (4.5-6.0); RED CELL DISTRIBUTION WIDTH 19.7 % (11.5-15.0); WHITE BLOOD COUNT (AUTO) 18.2 K/uL (4.3-11.0)
[2024-08-15 07:05] LABS: CARBON DIOXIDE 24 mmol/L (21-32); CHLORIDE 99 mmol/L (98-107); CREATININE 5.6 mg/dL (0.6-1.3); GLUCOSE 173 mg/dL (74-106); POTASSIUM 3.4 mmol/L (3.5-5.1); SODIUM SERUM 136 mmol/L (136-145); UREA NITROGEN, BLOOD 71 mg/dL (7-18)
[2024-08-15 08:00] VITALS: BP 116/56; TEMP 98.1; O2SAT 97
[2024-08-15 12:00] VITALS: BP 95/54; TEMP 97.4; O2SAT 98
[2024-08-15] MEDS: ACETYLCYSTEINE 20% SOLN 800 MG/4 ML VIAL NEB SCH (13:17)
[2024-08-15 16:00] VITALS: BP 104/59; TEMP 98.2; O2SAT 98
[2024-08-15 20:00] VITALS: BP 106/52; TEMP 97.7; O2SAT 98
[2024-08-15] MEDS ORDERED: METRONIDAZOLE 500 MG TABLET PO SCH (21:00)
[2024-08-15] MEDS: MIDODRINE HCL (5MG) 5 MG TABLET GT SCH (21:53)
[2024-08-15] MEDS: METRONIDAZOLE 500 MG TABLET GT SCH (21:53)
[2024-08-16] VITALS (14 sets, daily range): BP systolic 97–134; BP diastolic 51–79; TEMP 97.7–98.6; O2SAT 96–99
[2024-08-16] MEDS: IPRATROPIUM NEB FS 0.5 MG/2.5 ML AMPUL.NEB NEB PRN (07:51)
[2024-08-16] MEDS: ALBUTEROL FS 2.5 MG/3 ML VIAL.NEB NEB PRN (07:51)
[2024-08-16 08:11] LABS: BASOPHILS # (AUTO) 0.1 K/uL (0.0-0.2); BASOPHILS % (AUTO) 0.3 % (0.0-2.0); EOSINOPHILS # (AUTO) 0.2 K/uL (0.0-0.7); EOSINOPHILS % (AUTO) 1.2 % (0.0-6.0); HEMATOCRIT 27 % (39-51); HEMOGLOBIN 8.7 g/dL (13.5-17.5); LYMPHOCYTES # (AUTO) 1.1 K/uL (0.8-4.8); LYMPHOCYTES % (AUTO) 6.1 % (20.0-44.0); MEAN CORPUSCULAR HEMOGLOBIN 28 PG (26.0-33.0); MEAN CORPUSCULAR HGB CONC 32 g/dl (31.0-36.0); MEAN CORPUSCULAR VOLUME 87 fL (80-96); MONOCYTES # (AUTO) 0.8 K/uL (0.1-1.30); MONOCYTES % (AUTO) 4.9 % (2.0-12.0); NEUTROPHILS # (AUTO) 15.3 K/uL (1.8-8.9); NEUTROPHILS % (AUTO) 87.5 % (43.0-81.0); PLATELET COUNT (AUTO) 182 K/uL (150-450); RED BLOOD CELL COUNT(AUTO) 3.14 MIL/uL (4.5-6.0); RED CELL DISTRIBUTION WIDTH 19.7 % (11.5-15.0); WHITE BLOOD COUNT (AUTO) 17.4 K/uL (4.3-11.0)
[2024-08-16 08:25] LABS: CALCIUM, SERUM 10.1 mg/dL (8.5-10.1); CARBON DIOXIDE 27 mmol/L (21-32); CHLORIDE 101 mmol/L (98-107); CREATININE 5.5 mg/dL (0.6-1.3); GLUCOSE 127 mg/dL (74-106); PHOSPHORUS 1.4 mg/dL (2.5-4.9); POTASSIUM 3.4 mmol/L (3.5-5.1); SODIUM SERUM 139 mmol/L (136-145); UREA NITROGEN, BLOOD 78 mg/dL (7-18)
[2024-08-16] MEDS ORDERED: IOHEXOL 0 ML IV ONE (09:06)
[2024-08-16] MEDS ORDERED: LIDOCAINE HCL/MPF 1% 30 ML VIAL IJ ONE (09:06)
[2024-08-16] MEDS ORDERED: HEPARIN SODIUM, PORCINE 1,000 UNIT/ML VIAL ONE (09:06)
[2024-08-16] MEDS: POTASSIUM CL. PREMIX PERIPHER. 50 ML IV SCH (11:15)
[2024-08-16] MEDS: NEUTRA PHOS 1 POWD.PACKET GT ONE (16:07)
[2024-08-17] VITALS (8 sets, daily range): BP systolic 97–110; BP diastolic 46–63; TEMP 98.4–98.6; O2SAT 96–100
[2024-08-17 07:17] LABS: BASOPHILS % (AUTO) 0.2 % (0.0-2.0); EOSINOPHILS # (AUTO) 0.1 K/uL (0.0-0.7); EOSINOPHILS % (AUTO) 0.6 % (0.0-6.0); HEMATOCRIT 27 % (39-51); HEMOGLOBIN 8.8 g/dL (13.5-17.5); LYMPHOCYTES % (AUTO) 5.2 % (20.0-44.0); MEAN CORPUSCULAR HEMOGLOBIN 28 PG (26.0-33.0); MEAN CORPUSCULAR HGB CONC 32 g/dl (31.0-36.0); MEAN CORPUSCULAR VOLUME 87 fL (80-96); MONOCYTES # (AUTO) 1.1 K/uL (0.1-1.30); MONOCYTES % (AUTO) 6.1 % (2.0-12.0); NEUTROPHILS # (AUTO) 16.4 K/uL (1.8-8.9); NEUTROPHILS % (AUTO) 87.9 % (43.0-81.0); PLATELET COUNT (AUTO) 184 K/uL (150-450); RED BLOOD CELL COUNT(AUTO) 3.14 MIL/uL (4.5-6.0); RED CELL DISTRIBUTION WIDTH 19.3 % (11.5-15.0); WHITE BLOOD COUNT (AUTO) 18.7 K/uL (4.3-11.0)
[2024-08-17 07:34] LABS: CALCIUM, SERUM 10.7 mg/dL (8.5-10.1); CARBON DIOXIDE 26 mmol/L (21-32); CHLORIDE 98 mmol/L (98-107); CREATININE 6.2 mg/dL (0.6-1.3); GLUCOSE 135 mg/dL (74-106); MAGNESIUM 1.7 mg/dL (1.8-2.4); PHOSPHORUS 2.2 mg/dL (2.5-4.9); POTASSIUM 3.5 mmol/L (3.5-5.1); SODIUM SERUM 137 mmol/L (136-145)
[2024-08-17 08:22] LABS: UREA NITROGEN, BLOOD 89 mg/dL (7-18)
[2024-08-17] MEDS: EPOETIN ALFA (10,000 UNIT) 10,000 UNIT/ML VIAL IV ONE (09:52)
[2024-08-17 12:03] LABS: LYMPHOCYTES % (MANUAL) 6 % (16-48); MONOCYTES % (MANUAL) 7 % (0-11.0); NEUTROPHILS % (MANUAL) 87 (42-76)
[2024-08-17 12:33] LABS: ANISOCYTOSIS 1+; PLATELET ESTIMATE ADEQUATE
[2024-08-17] MEDS: NEUTRA PHOS 1 POWD.PACKET GT ONE (16:53)
[2024-08-17] MEDS ORDERED: VANCOMYCIN POST DIALYSIS 500MG IV PRN (20:30)
[2024-08-17] MEDS: MEROPENEM 500 MG in IV NS 0.9% 50 ML IV SCH (20:44)
[2024-08-17] MEDS: VANCOMYCIN 1 GM in IV D5W 250ml IV ONE (21:42)
[2024-08-18] VITALS (11 sets, daily range): BP systolic 90–115; BP diastolic 43–54; TEMP 97.3–98.6; O2SAT 93–100
[2024-08-18 06:50] LABS: BASOPHILS # (AUTO) 0.1 K/uL (0.0-0.2); BASOPHILS % (AUTO) 0.4 % (0.0-2.0); EOSINOPHILS # (AUTO) 0.1 K/uL (0.0-0.7); EOSINOPHILS % (AUTO) 0.5 % (0.0-6.0); HEMATOCRIT 26 % (39-51); HEMOGLOBIN 8.3 g/dL (13.5-17.5); LYMPHOCYTES # (AUTO) 1.2 K/uL (0.8-4.8); LYMPHOCYTES % (AUTO) 6.4 % (20.0-44.0); MEAN CORPUSCULAR HEMOGLOBIN 28 PG (26.0-33.0); MEAN CORPUSCULAR HGB CONC 32 g/dl (31.0-36.0); MEAN CORPUSCULAR VOLUME 87 fL (80-96); MONOCYTES # (AUTO) 1.3 K/uL (0.1-1.30); MONOCYTES % (AUTO) 6.8 % (2.0-12.0); NEUTROPHILS # (AUTO) 15.8 K/uL (1.8-8.9); NEUTROPHILS % (AUTO) 85.9 % (43.0-81.0); PLATELET COUNT (AUTO) 171 K/uL (150-450); RED BLOOD CELL COUNT(AUTO) 2.99 MIL/uL (4.5-6.0); RED CELL DISTRIBUTION WIDTH 18.8 % (11.5-15.0); WHITE BLOOD COUNT (AUTO) 18.4 K/uL (4.3-11.0)
[2024-08-18 07:17] LABS: CALCIUM, SERUM 10.2 mg/dL (8.5-10.1); CARBON DIOXIDE 29 mmol/L (21-32); CHLORIDE 100 mmol/L (98-107); GLUCOSE 142 mg/dL (74-106); PHOSPHORUS 2.2 mg/dL (2.5-4.9); SODIUM SERUM 142 mmol/L (136-145); UREA NITROGEN, BLOOD 65 mg/dL (7-18)
[2024-08-18] MEDS ORDERED: POTASSIUM PHOSPHATE MM 15 MMOL in IV NS 0.9% 250 ML IV SCH (11:00)
[2024-08-18] MEDS: POTASSIUM PHOSPHATE MM 7.5 MMOL in IV NS 0.9% 100 ML IV SCH (11:49)
[2024-08-19] VITALS (11 sets, daily range): BP systolic 89–117; BP diastolic 55–59; TEMP 98–98.8; O2SAT 94–100
[2024-08-19 05:50] LABS: BASOPHILS # (AUTO) 0.1 K/uL (0.0-0.2); BASOPHILS % (AUTO) 0.4 % (0.0-2.0); EOSINOPHILS # (AUTO) 0.1 K/uL (0.0-0.7); EOSINOPHILS % (AUTO) 0.7 % (0.0-6.0); HEMATOCRIT 25 % (39-51); HEMOGLOBIN 8.3 g/dL (13.5-17.5); LYMPHOCYTES # (AUTO) 1.1 K/uL (0.8-4.8); LYMPHOCYTES % (AUTO) 5.9 % (20.0-44.0); MEAN CORPUSCULAR HEMOGLOBIN 29 PG (26.0-33.0); MEAN CORPUSCULAR HGB CONC 33 g/dl (31.0-36.0); MEAN CORPUSCULAR VOLUME 87 fL (80-96); MONOCYTES # (AUTO) 1.4 K/uL (0.1-1.30); MONOCYTES % (AUTO) 7.6 % (2.0-12.0); NEUTROPHILS # (AUTO) 15.6 K/uL (1.8-8.9); NEUTROPHILS % (AUTO) 85.4 % (43.0-81.0); PLATELET COUNT (AUTO) 176 K/uL (150-450); RED CELL DISTRIBUTION WIDTH 18.6 % (11.5-15.0); WHITE BLOOD COUNT (AUTO) 18.2 K/uL (4.3-11.0)
[2024-08-19 06:03] LABS: INR 1.27 (0.91-1.10); PARTIAL THROMBOPLASTIN TIME 30.2 SEC (24.3-34.3); PROTHROMBIN TIME 13.3 SECS (9.2-11.1)
[2024-08-19 06:04] LABS: CALCIUM, SERUM 10.3 mg/dL (8.5-10.1); CARBON DIOXIDE 27 mmol/L (21-32); CHLORIDE 99 mmol/L (98-107); CREATININE 5.6 mg/dL (0.6-1.3); GLUCOSE 137 mg/dL (74-106); MAGNESIUM 1.6 mg/dL (1.8-2.4); PHOSPHORUS 3.7 mg/dL (2.5-4.9); POTASSIUM 3.2 mmol/L (3.5-5.1); SODIUM SERUM 140 mmol/L (136-145); UREA NITROGEN, BLOOD 76 mg/dL (7-18)
[2024-08-19] MEDS: Magnesium 1GM/D5W 100ML PREMIX 100 ML IV SCH (10:33)
[2024-08-19] MEDS ORDERED: ALBUMIN 25% 25 GM in PREMIX 1 EA IV PRN (16:30)
[2024-08-20] VITALS (9 sets, daily range): BP systolic 98–135; BP diastolic 57–65; TEMP 98–99; O2SAT 96–100
[2024-08-20 07:07] LABS: BASOPHILS # (AUTO) 0.1 K/uL (0.0-0.2); BASOPHILS % (AUTO) 0.4 % (0.0-2.0); EOSINOPHILS # (AUTO) 0.2 K/uL (0.0-0.7); EOSINOPHILS % (AUTO) 1.4 % (0.0-6.0); HEMATOCRIT 26 % (39-51); HEMOGLOBIN 8.3 g/dL (13.5-17.5); LYMPHOCYTES # (AUTO) 0.9 K/uL (0.8-4.8); LYMPHOCYTES % (AUTO) 6.3 % (20.0-44.0); MEAN CORPUSCULAR HEMOGLOBIN 28 PG (26.0-33.0); MEAN CORPUSCULAR HGB CONC 32 g/dl (31.0-36.0); MEAN CORPUSCULAR VOLUME 87 fL (80-96); MONOCYTES # (AUTO) 1.1 K/uL (0.1-1.30); MONOCYTES % (AUTO) 7.3 % (2.0-12.0); NEUTROPHILS # (AUTO) 12.7 K/uL (1.8-8.9); NEUTROPHILS % (AUTO) 84.6 % (43.0-81.0); PLATELET COUNT (AUTO) 197 K/uL (150-450); RED BLOOD CELL COUNT(AUTO) 2.96 MIL/uL (4.5-6.0); RED CELL DISTRIBUTION WIDTH 18.9 % (11.5-15.0)
[2024-08-20 07:28] LABS: CALCIUM, SERUM 9.9 mg/dL (8.5-10.1); CARBON DIOXIDE 30 mmol/L (21-32); CHLORIDE 102 mmol/L (98-107); GLUCOSE 123 mg/dL (74-106); MAGNESIUM 2.3 mg/dL (1.8-2.4); PHOSPHORUS 2.4 mg/dL (2.5-4.9); POTASSIUM 2.8 mmol/L (3.5-5.1); SODIUM SERUM 144 mmol/L (136-145); UREA NITROGEN, BLOOD 46 mg/dL (7-18)
[2024-08-20 08:08] LABS: EOSINOPHILS % (MANUAL) 2 % (0-4); LYMPHOCYTES % (MANUAL) 4 % (16-48); MONOCYTES % (MANUAL) 7 % (0-11.0); NEUTROPHILS % (MANUAL) 87 (42-76); PLATELET ESTIMATE ADEQUATE
[2024-08-20 08:09] LABS: ANISOCYTOSIS 1+; OVALOCYTES 1+
[2024-08-20] MEDS: POTASSIUM CHLORIDE 20 MEQ POWDER PACKET GT ONE (12:03)
[2024-08-21] VITALS (10 sets, daily range): BP systolic 100–125; BP diastolic 55–88; TEMP 97.5–98.1; O2SAT 95–100
[2024-08-21 07:04] LABS: BASOPHILS % (AUTO) 0.3 % (0.0-2.0); EOSINOPHILS # (AUTO) 0.2 K/uL (0.0-0.7); EOSINOPHILS % (AUTO) 1.6 % (0.0-6.0); HEMATOCRIT 29 % (39-51); HEMOGLOBIN 8.9 g/dL (13.5-17.5); LYMPHOCYTES # (AUTO) 1.2 K/uL (0.8-4.8); LYMPHOCYTES % (AUTO) 8.4 % (20.0-44.0); MEAN CORPUSCULAR HEMOGLOBIN 28 PG (26.0-33.0); MEAN CORPUSCULAR HGB CONC 31 g/dl (31.0-36.0); MEAN CORPUSCULAR VOLUME 89 fL (80-96); MONOCYTES # (AUTO) 1.2 K/uL (0.1-1.30); NEUTROPHILS # (AUTO) 11.1 K/uL (1.8-8.9); NEUTROPHILS % (AUTO) 80.7 % (43.0-81.0); PLATELET COUNT (AUTO) 203 K/uL (150-450); RED CELL DISTRIBUTION WIDTH 18.9 % (11.5-15.0); WHITE BLOOD COUNT (AUTO) 13.8 K/uL (4.3-11.0)
[2024-08-21 08:16] LABS: CALCIUM, SERUM 10.7 mg/dL (8.5-10.1); CARBON DIOXIDE 26 mmol/L (21-32); CHLORIDE 99 mmol/L (98-107); CREATININE 4.8 mg/dL (0.6-1.3); GLUCOSE 129 mg/dL (74-106); MAGNESIUM 2.1 mg/dL (1.8-2.4); PHOSPHORUS 2.6 mg/dL (2.5-4.9); POTASSIUM 3.1 mmol/L (3.5-5.1); SODIUM SERUM 140 mmol/L (136-145); UREA NITROGEN, BLOOD 63 mg/dL (7-18)
[2024-08-21 10:25] LABS: ANISOCYTOSIS 1+; BAND % (MANUAL) 2 % (0.0-5.0); EOSINOPHILS % (MANUAL) 2 % (0-4); LYMPHOCYTES % (MANUAL) 9 % (16-48); MONOCYTES % (MANUAL) 4 % (0-11.0); MYELOCYTES % 2 % (0-0); NEUTROPHILS % (MANUAL) 81 (42-76); PLATELET ESTIMATE ADEQUATE
[2024-08-21 10:26] LABS: OVALOCYTES 1+
[2024-08-21] MEDS: POTASSIUM CL. PREMIX PERIPHER. 50 ML IV SCH (17:02)
[2024-08-21] MEDS ORDERED: VANCOMYCIN POST DIALYSIS 500MG IV PRN (21:00)
[2024-08-22] VITALS (9 sets, daily range): BP systolic 109–142; BP diastolic 60–82; TEMP 96.8–98.1; O2SAT 95–100
[2024-08-22 07:15] LABS: BASOPHILS % (AUTO) 0.4 % (0.0-2.0); EOSINOPHILS # (AUTO) 0.3 K/uL (0.0-0.7); EOSINOPHILS % (AUTO) 2.2 % (0.0-6.0); HEMATOCRIT 27 % (39-51); HEMOGLOBIN 8.6 g/dL (13.5-17.5); LYMPHOCYTES # (AUTO) 1.1 K/uL (0.8-4.8); LYMPHOCYTES % (AUTO) 8.9 % (20.0-44.0); MEAN CORPUSCULAR HEMOGLOBIN 28 PG (26.0-33.0); MEAN CORPUSCULAR HGB CONC 32 g/dl (31.0-36.0); MEAN CORPUSCULAR VOLUME 87 fL (80-96); MONOCYTES % (AUTO) 8.1 % (2.0-12.0); NEUTROPHILS # (AUTO) 9.5 K/uL (1.8-8.9); NEUTROPHILS % (AUTO) 80.4 % (43.0-81.0); PLATELET COUNT (AUTO) 204 K/uL (150-450); RED BLOOD CELL COUNT(AUTO) 3.04 MIL/uL (4.5-6.0); RED CELL DISTRIBUTION WIDTH 19.2 % (11.5-15.0); WHITE BLOOD COUNT (AUTO) 11.8 K/uL (4.3-11.0)
[2024-08-22 07:43] LABS: CARBON DIOXIDE 27 mmol/L (21-32); CHLORIDE 99 mmol/L (98-107); CREATININE 5.6 mg/dL (0.6-1.3); GLUCOSE 108 mg/dL (74-106); MAGNESIUM 2.1 mg/dL (1.8-2.4); POTASSIUM 3.1 mmol/L (3.5-5.1); SODIUM SERUM 140 mmol/L (136-145); UREA NITROGEN, BLOOD 78 mg/dL (7-18)
[2024-08-22] MEDS: POTASSIUM CL. PREMIX PERIPHER. 50 ML IV SCH (09:13)
[2024-08-22 11:32] LABS: ANISOCYTOSIS 1+; EOSINOPHILS % (MANUAL) 3 % (0-4); LYMPHOCYTES % (MANUAL) 9 % (16-48); MONOCYTES % (MANUAL) 4 % (0-11.0); NEUTROPHILS % (MANUAL) 84 (42-76); OVALOCYTES 1+; PLATELET ESTIMATE ADEQUATE
[2024-08-22] MEDS: NEPRO 1,000 ML BOTTLE GT PRN (18:24)
[2024-08-22] MEDS ORDERED: VANCOMYCIN 1 GM /D5W 250 ML PB IV ONE (21:44)
[2024-08-23] VITALS (10 sets, daily range): BP systolic 103–130; BP diastolic 49–77; TEMP 97.3–97.8; O2SAT 95–100
[2024-08-23 09:49] LABS: BASOPHILS # (AUTO) 0.1 K/uL (0.0-0.2); BASOPHILS % (AUTO) 0.5 % (0.0-2.0); EOSINOPHILS # (AUTO) 0.2 K/uL (0.0-0.7); EOSINOPHILS % (AUTO) 1.9 % (0.0-6.0); HEMATOCRIT 27 % (39-51); HEMOGLOBIN 8.8 g/dL (13.5-17.5); LYMPHOCYTES # (AUTO) 1.5 K/uL (0.8-4.8); MEAN CORPUSCULAR HEMOGLOBIN 28 PG (26.0-33.0); MEAN CORPUSCULAR HGB CONC 32 g/dl (31.0-36.0); MEAN CORPUSCULAR VOLUME 87 fL (80-96); MONOCYTES % (AUTO) 7.2 % (2.0-12.0); NEUTROPHILS # (AUTO) 10.6 K/uL (1.8-8.9); NEUTROPHILS % (AUTO) 79.4 % (43.0-81.0); PLATELET COUNT (AUTO) 219 K/uL (150-450); RED BLOOD CELL COUNT(AUTO) 3.12 MIL/uL (4.5-6.0); RED CELL DISTRIBUTION WIDTH 18.9 % (11.5-15.0); WHITE BLOOD COUNT (AUTO) 13.4 K/uL (4.3-11.0)
[2024-08-23 09:57] LABS: CALCIUM, SERUM 9.9 mg/dL (8.5-10.1); CARBON DIOXIDE 27 mmol/L (21-32); CHLORIDE 100 mmol/L (98-107); CREATININE 4.9 mg/dL (0.6-1.3); GLUCOSE 100 mg/dL (74-106); MAGNESIUM 2.1 mg/dL (1.8-2.4); PHOSPHORUS 2.9 mg/dL (2.5-4.9); POTASSIUM 3.3 mmol/L (3.5-5.1); SODIUM SERUM 140 mmol/L (136-145); UREA NITROGEN, BLOOD 62 mg/dL (7-18)
[2024-08-23 10:49] LABS: EOSINOPHILS % (MANUAL) 2 % (0-4); LYMPHOCYTES % (MANUAL) 9 % (16-48); MONOCYTES % (MANUAL) 4 % (0-11.0); MYELOCYTES % 1 % (0-0); NEUTROPHILS % (MANUAL) 84 (42-76); PLATELET ESTIMATE ADEQUATE
[2024-08-23 10:50] LABS: ANISOCYTOSIS 1+; OVALOCYTES 1+
[2024-08-23] MEDS: POTASSIUM CL. PREMIX PERIPHER. 50 ML IV SCH (11:04)
[2024-08-23] MEDS: SILVER NITRATE APPLICATOR 1 EA BOX TP ONE (15:11)
[2024-08-24] VITALS (9 sets, daily range): BP systolic 112–134; BP diastolic 57–64; TEMP 97.7–97.9; O2SAT 95–99
[2024-08-24 07:54] LABS: CALCIUM, SERUM 10.6 mg/dL (8.5-10.1); CARBON DIOXIDE 26 mmol/L (21-32); CHLORIDE 97 mmol/L (98-107); CREATININE 5.6 mg/dL (0.6-1.3); GLUCOSE 79 mg/dL (74-106); POTASSIUM 3.4 mmol/L (3.5-5.1); SODIUM SERUM 138 mmol/L (136-145); UREA NITROGEN, BLOOD 70 mg/dL (7-18)
[2024-08-24] MEDS ORDERED: POTASSIUM CHLORIDE 20 MEQ TAB.PRT.SR PO ONE ×2 (15:00→15:30)
[2024-08-24] MEDS: POTASSIUM CHLORIDE 20 MEQ POWDER PACKET GT ONE (15:33)
== END 2024-08-24 20:26 | DRG 981 ==
LOC: ER 16:00 → ICU 23:17 → TELE1 08-11 15:57 → MEDSG1 08-16 09:38
PROVIDERS: ATTEND Nurse Practitioner Acute Care
PROC: 5A1955Z Respiratory Ventilation, Greater than 96 Consecutive Hours (ICD-10-PCS; principal; 2024-08-02)
PROC: 0BH18EZ Insertion of Endotracheal Airway into Trachea, Via Natural or Artificial Opening Endoscopic (ICD-10-PCS; 2024-08-02)
PROC: 06HY33Z Insertion of Infusion Device into Lower Vein, Percutaneous Approach (ICD-10-PCS; 2024-08-03)
PROC: 5A1D70Z Performance of Urinary Filtration, Intermittent, Less than 6 Hours Per Day (ICD-10-PCS; 2024-08-03)
PROC: 0JH63XZ Insertion of Tunneled Vascular Access Device into Chest Subcutaneous Tissue and Fascia, Percutaneous Approach (ICD-10-PCS; 2024-08-16)
PROC: 02HV33Z Insertion of Infusion Device into Superior Vena Cava, Percutaneous Approach (ICD-10-PCS; 2024-08-16)
PROC: B518YZA Fluoroscopy of Superior Vena Cava using Other Contrast, Guidance (ICD-10-PCS; 2024-08-16)
PROC: 0KBN0ZZ Excision of Right Hip Muscle, Open Approach (ICD-10-PCS; 2024-08-23)
PROC: 0KBP0ZZ Excision of Left Hip Muscle, Open Approach (ICD-10-PCS; 2024-08-23)
PROC: 0DH63UZ Insertion of Feeding Device into Stomach, Percutaneous Approach (ICD-10-PCS; 2024-08-23)
DX: J69.0 Pneumonitis due to inhalation of food and vomit (principal); E43 Unspecified severe protein-calorie malnutrition; J96.02 Acute respiratory failure with hypercapnia; G93.41 Metabolic encephalopathy; L89.154 Pressure ulcer of sacral region, stage 4; I21.A1 Myocardial infarction type 2; N18.6 End stage renal disease; J96.01 Acute respiratory failure with hypoxia; R65.11 Systemic inflammatory response syndrome (SIRS) of non-infectious origin with acute organ dysfunction; I13.2 Hypertensive heart and chronic kidney disease with heart failure and with stage 5 chronic kidney disease, or end stage renal disease; T82.41XA Breakdown (mechanical) of vascular dialysis catheter, initial encounter; I48.20 Chronic atrial fibrillation, unspecified; K56.7 Ileus, unspecified; E72.20 Disorder of urea cycle metabolism, unspecified; I50.32 Chronic diastolic (congestive) heart failure; I42.9 Cardiomyopathy, unspecified; Z99.2 Dependence on renal dialysis; E78.5 Hyperlipidemia, unspecified; E87.6 Hypokalemia; E88.09 Other disorders of plasma-protein metabolism, not elsewhere classified; I25.10 Atherosclerotic heart disease of native coronary artery without angina pectoris; I25.2 Old myocardial infarction; K21.9 Gastro-esophageal reflux disease without esophagitis; Z95.0 Presence of cardiac pacemaker; Z87.891 Personal history of nicotine dependence; Z86.73 Personal history of transient ischemic attack (TIA), and cerebral infarction without residual deficits; Z85.46 Personal history of malignant neoplasm of prostate; F41.9 Anxiety disorder, unspecified; Z66 Do not resuscitate; Z79.01 Long term (current) use of anticoagulants; R13.10 Dysphagia, unspecified; G20.A1 Parkinson's disease without dyskinesia, without mention of fluctuations; D64.9 Anemia, unspecified; E11.22 Type 2 diabetes mellitus with diabetic chronic kidney disease; K29.70 Gastritis, unspecified, without bleeding; Z68.24 Body mass index [BMI] 24.0-24.9, adult; Y84.8 Other medical procedures as the cause of abnormal reaction of the patient, or of later complication, without mention of misadventure at the time of the procedure; Y92.129 Unspecified place in nursing home as the place of occurrence of the external cause; K26.9 Duodenal ulcer, unspecified as acute or chronic, without hemorrhage or perforation
CPT/HCPCS: 31720; 36415; 36600; 43246; 70450-TC; 71045-TC; 71046; 74018; 80048-TC; 80053-TC; 80076-TC; 80202-TC; 82140-TC; 82803-TC; 82962-TC; 83605-TC; 83735-TC; 84100-TC; 84443-TC; 84478-TC; 84484-TC; 85025-TC; 85730-TC; 86850-TC; 87040-TC; 87081-TC; 90935-TC; 92526; 92611-TC; 93307-TC; 94002-TC; 94003-TC; 94760-TC; 94761-TC; 94762-TC; 94799-TC; 99082-TC; A4216; A4223; A6403; A6407; A9563; C1750; C1757; C1769; C1894; G0378; G0480; J0692; J0885; J1160; J1644; J1940; J2003; J2060; J2185; J2405; J2470; J2543; J2704; J3010; J3370; J3475; J3480; J3490; J7030; J7040; J7050; J7060; P9047; Q9967

== ENCOUNTER 2024-08-29 17:38 | Inpatient (IN) | payer OTHER, MEDICARE ==
[~2024-08-29] VITALS: Ht 172.7 cm; Wt 74.4 kg
[~2024-08-29 17:38] MED LIST changes: +ACET-868 GT; -ACET-868 PO; +ACET160L44 PO; -ALEN70TA80 PO; +APIX2.5T GT; -APIX2.5T PO; +ATOR20TA GT; -ATOR20TA PO; -AZEL205. BNOSTRILS; -BENZ14GE MM; -BISA10SU11 RC; +CALC667C6 PO; +CARB-273 EACHEYE; -CEFE1FRO IV; -CELE100C PO; +CINA30TA2 GT; -CINA30TA2 PO; -CYCL30DR EACHEYE; -DARB40DI SQ; +DOCU100T2 GT; -DOCU100T2 PO; -DOXA2TAB2 PO; -FERR220E2 PO; +FERR325T24 GT; +FOLI0.8T2 GT; +GABA-532 GT; -GABA-532 PO; +GUAI100S9 PO; +HONE44PA TP; -MAGN400O6 PO; +MERO500V23 IV; +MONT10TA22 GT; -MONT10TA22 PO; +MUCOMYST NEB; +ONDA-97 GT; +PRIM50TA27 GT; -PRIM50TA27 PO; +TAMS-12 GT; -VANC500F2 IV; +VANC750F IV; +ZINC220C6 GT
[2024-08-29 18:24] LABS: BASOPHILS # (AUTO) 0.1 K/uL (0.0-0.2); BASOPHILS % (AUTO) 0.7 % (0.0-2.0); EOSINOPHILS # (AUTO) 0.3 K/uL (0.0-0.7); EOSINOPHILS % (AUTO) 1.7 % (0.0-6.0); HEMATOCRIT 26 % (39-51); HEMOGLOBIN 8.3 g/dL (13.5-17.5); LYMPHOCYTES # (AUTO) 1.5 K/uL (0.8-4.8); LYMPHOCYTES % (AUTO) 8.5 % (20.0-44.0); MEAN CORPUSCULAR HEMOGLOBIN 28 PG (26.0-33.0); MEAN CORPUSCULAR HGB CONC 32 g/dl (31.0-36.0); MEAN CORPUSCULAR VOLUME 89 fL (80-96); MONOCYTES # (AUTO) 1.6 K/uL (0.1-1.30); MONOCYTES % (AUTO) 9.3 % (2.0-12.0); NEUTROPHILS % (AUTO) 79.8 % (43.0-81.0); PLATELET COUNT (AUTO) 240 K/uL (150-450); RED BLOOD CELL COUNT(AUTO) 2.97 MIL/uL (4.5-6.0); RED CELL DISTRIBUTION WIDTH 18.4 % (11.5-15.0); WHITE BLOOD COUNT (AUTO) 17.6 K/uL (4.3-11.0)
[2024-08-29 18:37] LABS: INR 1.35 (0.91-1.10); PARTIAL THROMBOPLASTIN TIME 57.4 SEC (24.3-34.3); PROTHROMBIN TIME 13.7 SECS (9.2-11.1)
[2024-08-29 18:38] LABS: ALBUMIN 2.6 g/dL (3.4-5.0); ALKALINE PHOSPHATASE 91 U/L (46-116); ASPARTATE AMINOTRANSFERASE 24 U/L (15-37); BILIRUBIN,DIRECT 0.2 mg/dL (0.0-0.2); BILIRUBIN,TOTAL 0.4 mg/dL (0.2-1.0); CALCIUM, SERUM 8.3 mg/dL (8.5-10.1); CARBON DIOXIDE 29 mmol/L (21-32); CHLORIDE 98 mmol/L (98-107); GLUCOSE 106 mg/dL (74-106); SODIUM SERUM 135 mmol/L (136-145); TOTAL PROTEIN, SERUM 7.3 g/dL (6.4-8.2); UREA NITROGEN, BLOOD 23 mg/dL (7-18)
[2024-08-29 18:43] LABS: LACTIC ACID 0.8 mmol/L (0.4-2.0)
[2024-08-29 18:44] LABS: POTASSIUM 2.4 mmol/L (3.5-5.1)
[2024-08-29 18:54] LABS: ALANINE AMINOTRANSFERASE 7 U/L (12-78)
[2024-08-29] MEDS: IV NS 0.9% 500 ML BAG IV ONE (18:59)
[2024-08-29 19:36] LABS: EOSINOPHILS % (MANUAL) 1 % (0-4); LYMPHOCYTES % (MANUAL) 13 % (16-48); MONOCYTES % (MANUAL) 7 % (0-11.0); NEUTROPHILS % (MANUAL) 79 (42-76); PLATELET ESTIMATE ADEQUATE
[2024-08-29] MEDS ORDERED: MIDO10TA GT (19:40)
[2024-08-29] MEDS ORDERED: PANT40SU2 GT (19:40)
[2024-08-29] MEDS ORDERED: ACET325T53 GT (19:40)
[2024-08-29] MEDS ORDERED: NUT.237L67 GT (19:40)
[2024-08-29] MEDS ORDERED: AMIN30LI2 GT (19:40)
[2024-08-29] MEDS ORDERED: CEFTRIAXONE 1 G in IV D5W 50 ML IV SCH (20:00)
[2024-08-29] MEDS ORDERED: MAGNESIUM HYDROXIDE 30 ML UDC PO PRN (20:30)
[2024-08-29] MEDS ORDERED: ONDANSETRON HCL/PF 4 MG/2 ML VIAL IVP PRN (20:30)
[2024-08-29] MEDS ORDERED: ACETAMINOPHEN 325 MG TABLET PO PRN (20:30)
[2024-08-29] MEDS ORDERED: MAG HYDROX/AL HYDROX/SIMETH 30 ML UDC PO PRN (20:30)
[2024-08-29] MEDS ORDERED: PRIMIDONE 50 MG TABLET GT PRN (20:30)
[2024-08-29] MEDS ORDERED: MAG HYDROX/AL HYDROX/SIMETH 30 ML UDC GT PRN (20:31)
[2024-08-29] MEDS ORDERED: MAGNESIUM HYDROXIDE 30 ML UDC GT PRN (20:31)
[2024-08-29] MEDS ORDERED: MIDODRINE HCL (5MG) 5 MG TABLET ONE (20:58)
[2024-08-29] MEDS ORDERED: DOXYCYCLINE 100 MG in IV D5W 100 ML IV SCH (21:00)
[2024-08-29] MEDS ORDERED: Medication Not On Formulary EA (Ipratropium/Albuterol Sulfate (Duoneb 2.5-0.5 Mg/3 Ml So IH SCH (21:00)
[2024-08-29] MEDS ORDERED: ONDANSETRON 4 MG TAB.RAPDIS GT PRN (21:00)
[2024-08-29] MEDS: MIDODRINE HCL (5MG) 5 MG TABLET PO ONE (21:07)
[2024-08-29 22:00] VITALS: BP 102/53; TEMP 97.9; O2SAT 100
[2024-08-29] MEDS ORDERED: CEFEPIME 1 GM in IV D5W 50 ML IV SCH (22:30)
[2024-08-29 22:35] VITALS: BP 102/53; TEMP 97.9; O2SAT 100
[2024-08-29] MEDS: TAMSULOSIN 0.4 MG CAP.SR.24H GT SCH (22:36)
[2024-08-29] MEDS: CINACALCET HCL 30 MG TABLET GT SCH (22:37)
[2024-08-29] MEDS: ATORVASTATIN 10 MG TABLET GT SCH (22:37)
[2024-08-29] MEDS: POTASSIUM CHLORIDE 20 MEQ POWDER PACKET GT ONE (22:37)
[2024-08-29] MEDS ORDERED: CEFEPIME 1 GM VIAL ONE (22:57)
[2024-08-29] MEDS: CEFEPIME 1 GM in IV NS 0.9% 100 ML IV ONE (23:07)
[2024-08-30] VITALS (14 sets, daily range): BP systolic 90–108; BP diastolic 44–56; TEMP 98.4–98.8; O2SAT 94–100
[2024-08-30] MEDS: NEPRO 1,000 ML BOTTLE GT PRN (00:30)
[2024-08-30] MEDS: IPRATROPIUM NEB FS 0.5 MG/2.5 ML AMPUL.NEB NEB SCH (01:30)
[2024-08-30] MEDS: ALBUTEROL FS 2.5 MG/3 ML VIAL.NEB NEB SCH (01:30)
[2024-08-30 01:58] LABS: CALCIUM, SERUM 8.9 mg/dL (8.5-10.1); CARBON DIOXIDE 28 mmol/L (21-32); CHLORIDE 105 mmol/L (98-107); CREATININE 2.2 mg/dL (0.6-1.3); GLUCOSE 101 mg/dL (74-106); POTASSIUM 3.1 mmol/L (3.5-5.1); SODIUM SERUM 143 mmol/L (136-145); UREA NITROGEN, BLOOD 25 mg/dL (7-18)
[2024-08-30] MEDS: ACETYLCYSTEINE 20% SOLN 800 MG/4 ML VIAL NEB SCH (07:37)
[2024-08-30] MEDS ORDERED: POTASSIUM CHLORIDE 20 MEQ TAB.PRT.SR PO ONE (08:00)
[2024-08-30 08:02] LABS: BASOPHILS # (AUTO) 0.1 K/uL (0.0-0.2); BASOPHILS % (AUTO) 0.6 % (0.0-2.0); EOSINOPHILS # (AUTO) 0.2 K/uL (0.0-0.7); EOSINOPHILS % (AUTO) 1.1 % (0.0-6.0); HEMATOCRIT 26 % (39-51); HEMOGLOBIN 8.2 g/dL (13.5-17.5); LYMPHOCYTES # (AUTO) 1.3 K/uL (0.8-4.8); LYMPHOCYTES % (AUTO) 7.4 % (20.0-44.0); MEAN CORPUSCULAR HEMOGLOBIN 28 PG (26.0-33.0); MEAN CORPUSCULAR HGB CONC 32 g/dl (31.0-36.0); MEAN CORPUSCULAR VOLUME 88 fL (80-96); MONOCYTES # (AUTO) 1.6 K/uL (0.1-1.30); MONOCYTES % (AUTO) 9.2 % (2.0-12.0); NEUTROPHILS # (AUTO) 14.3 K/uL (1.8-8.9); NEUTROPHILS % (AUTO) 81.7 % (43.0-81.0); PLATELET COUNT (AUTO) 223 K/uL (150-450); RED BLOOD CELL COUNT(AUTO) 2.93 MIL/uL (4.5-6.0); RED CELL DISTRIBUTION WIDTH 18.2 % (11.5-15.0); WHITE BLOOD COUNT (AUTO) 17.5 K/uL (4.3-11.0)
[2024-08-30 08:13] LABS: CALCIUM, SERUM 9.5 mg/dL (8.5-10.1); CARBON DIOXIDE 27 mmol/L (21-32); CHLORIDE 102 mmol/L (98-107); CREATININE 2.4 mg/dL (0.6-1.3); GLUCOSE 133 mg/dL (74-106); PHOSPHORUS 1.6 mg/dL (2.5-4.9); SODIUM SERUM 138 mmol/L (136-145); UREA NITROGEN, BLOOD 28 mg/dL (7-18)
[2024-08-30 08:47] LABS: NEUTROPHILS % (MANUAL) 81 (42-76)
[2024-08-30 08:48] LABS: EOSINOPHILS % (MANUAL) 2 % (0-4); LYMPHOCYTES % (MANUAL) 11 % (16-48); MONOCYTES % (MANUAL) 5 % (0-11.0); MYELOCYTES % 1 % (0-0); PLATELET ESTIMATE ADEQUATE
[2024-08-30 08:49] LABS: STOMATOCYTES 1+
[2024-08-30] MEDS: VIT B CMPLX 3/FA/VIT C/BIOTIN 1 TAB TABLET GT SCH (08:55)
[2024-08-30] MEDS: ZINC SULFATE 220 MG CAPSULE GT SCH (08:55)
[2024-08-30] MEDS: MIDODRINE HCL (5MG) 5 MG TABLET GT SCH (08:56)
[2024-08-30] MEDS: GABAPENTIN 100 MG CAPSULE GT SCH (08:56)
[2024-08-30] MEDS: APIXABAN 2.5 MG TABLET GT SCH (08:56)
[2024-08-30] MEDS: MONTELUKAST SODIUM (10MG) 10 MG TABLET GT SCH (08:56)
[2024-08-30] MEDS: FERROUS SULFATE (325 MG) 325 MG/TAB TABLET GT SCH (08:56)
[2024-08-30] MEDS: DOCUSATE SODIUM LIQ 100 MG/10 ML UDC GT SCH (08:57)
[2024-08-30] MEDS: PANTOPRAZOLE 40 MG VIAL IV SCH (08:57)
[2024-08-30] MEDS: DAKINS QUARTER STRENGTH (0.125%) 480 ML BOTTLE TOP SCH (09:01)
[2024-08-30] MEDS: THERAHONEY GEL 1.5 OZ TUBE TP SCH ×2 (09:02→09:39)
[2024-08-30] MEDS: POLYVINYL ALCOHOL 15 ML BOTTLE EACHEYE SCH (09:02)
[2024-08-30] MEDS: PROSOURCE / PROSTAT (PYXIS) 30 ML UDC GT SCH (09:03)
[2024-08-30] MEDS: POTASSIUM CHLORIDE 20 MEQ POWDER PACKET GT ONE (11:50)
[2024-08-30] MEDS ORDERED: DEXTROSE 50%-WATER 50 ML DISP.SYRIN IV PRN (12:30)
[2024-08-30] MEDS: SILVER NITRATE APPLICATOR 1 EA BOX TP ONE (14:30)
[2024-08-30] MEDS: LIDOCAINE 1%-EPI 1:200,000 SDV 10 ML VIAL IJ ONE (14:30)
[2024-08-30] MEDS: NEUTRA PHOS 1 POWD.PACKET GT ONE (16:33)
[2024-08-30] MEDS: INSULIN REGULAR, HUMAN 100 UNIT/ML 3 ML VIAL SQ PRN (16:46)
[2024-08-30] MEDS: BLOOD SUGAR DIAGNOSTIC 1 EACH STRIP IN SCH (16:46)
[2024-08-30] MEDS: CEFEPIME 1 GM in IV D5W 50 ML IV SCH (22:49)
[2024-08-31] VITALS (14 sets, daily range): BP systolic 98–120; BP diastolic 52–58; TEMP 97.9–98.9; O2SAT 95–100
[2024-08-31 07:04] LABS: BASOPHILS % (AUTO) 0.2 % (0.0-2.0); EOSINOPHILS # (AUTO) 0.2 K/uL (0.0-0.7); EOSINOPHILS % (AUTO) 0.8 % (0.0-6.0); HEMATOCRIT 24 % (39-51); HEMOGLOBIN 8.1 g/dL (13.5-17.5); LYMPHOCYTES # (AUTO) 1.1 K/uL (0.8-4.8); LYMPHOCYTES % (AUTO) 5.7 % (20.0-44.0); MEAN CORPUSCULAR HEMOGLOBIN 30 PG (26.0-33.0); MEAN CORPUSCULAR HGB CONC 34 g/dl (31.0-36.0); MEAN CORPUSCULAR VOLUME 88 fL (80-96); MONOCYTES # (AUTO) 1.6 K/uL (0.1-1.30); MONOCYTES % (AUTO) 8.7 % (2.0-12.0); NEUTROPHILS # (AUTO) 15.9 K/uL (1.8-8.9); NEUTROPHILS % (AUTO) 84.6 % (43.0-81.0); PLATELET COUNT (AUTO) 209 K/uL (150-450); RED BLOOD CELL COUNT(AUTO) 2.73 MIL/uL (4.5-6.0); RED CELL DISTRIBUTION WIDTH 18.7 % (11.5-15.0); WHITE BLOOD COUNT (AUTO) 18.8 K/uL (4.3-11.0)
[2024-08-31 07:35] LABS: CALCIUM, SERUM 9.2 mg/dL (8.5-10.1); CARBON DIOXIDE 23 mmol/L (21-32); CHLORIDE 103 mmol/L (98-107); CREATININE 3.6 mg/dL (0.6-1.3); GLUCOSE 154 mg/dL (74-106); MAGNESIUM 1.9 mg/dL (1.8-2.4); PHOSPHORUS 2.6 mg/dL (2.5-4.9); POTASSIUM 3.7 mmol/L (3.5-5.1); SODIUM SERUM 139 mmol/L (136-145); UREA NITROGEN, BLOOD 42 mg/dL (7-18)
[2024-08-31] MEDS: ACETAMINOPHEN 650 MG/20.3 ML UDC GT PRN (18:03)
[2024-08-31] MEDS: VANCOMYCIN POST DIALYSIS 500MG IV PRN (19:39)
[2024-09-01] VITALS (14 sets, daily range): BP systolic 103–118; BP diastolic 48–63; TEMP 97.7–98.8; O2SAT 95–99
[2024-09-01 08:29] LABS: CALCIUM, SERUM 9.7 mg/dL (8.5-10.1); CARBON DIOXIDE 28 mmol/L (21-32); CHLORIDE 102 mmol/L (98-107); CREATININE 2.9 mg/dL (0.6-1.3); GLUCOSE 155 mg/dL (74-106); MAGNESIUM 1.9 mg/dL (1.8-2.4); POTASSIUM 3.4 mmol/L (3.5-5.1); SODIUM SERUM 140 mmol/L (136-145); UREA NITROGEN, BLOOD 35 mg/dL (7-18)
[2024-09-01 08:51] LABS: BASOPHILS # (AUTO) 0.1 K/uL (0.0-0.2); BASOPHILS % (AUTO) 0.4 % (0.0-2.0); EOSINOPHILS # (AUTO) 0.3 K/uL (0.0-0.7); EOSINOPHILS % (AUTO) 1.8 % (0.0-6.0); HEMATOCRIT 25 % (39-51); LYMPHOCYTES # (AUTO) 1.3 K/uL (0.8-4.8); LYMPHOCYTES % (AUTO) 7.2 % (20.0-44.0); MEAN CORPUSCULAR HEMOGLOBIN 28 PG (26.0-33.0); MEAN CORPUSCULAR HGB CONC 32 g/dl (31.0-36.0); MEAN CORPUSCULAR VOLUME 88 fL (80-96); MONOCYTES # (AUTO) 1.3 K/uL (0.1-1.30); MONOCYTES % (AUTO) 7.4 % (2.0-12.0); NEUTROPHILS # (AUTO) 14.8 K/uL (1.8-8.9); NEUTROPHILS % (AUTO) 83.2 % (43.0-81.0); PLATELET COUNT (AUTO) 224 K/uL (150-450); RED BLOOD CELL COUNT(AUTO) 2.87 MIL/uL (4.5-6.0); RED CELL DISTRIBUTION WIDTH 18.5 % (11.5-15.0); WHITE BLOOD COUNT (AUTO) 17.8 K/uL (4.3-11.0)
[2024-09-01] MEDS: PANTOPRAZOLE 40 MG/PACK PACK GT SCH (09:36)
[2024-09-01] MEDS: EPOETIN ALFA (20,000 UNIT) 20,000 UNIT/ML VIAL SQ ONE (11:53)
[2024-09-02] VITALS (10 sets, daily range): BP systolic 96–138; BP diastolic 60–63; TEMP 98.2–98.6; O2SAT 93–100
[2024-09-02 07:15] LABS: BASOPHILS % (AUTO) 0.3 % (0.0-2.0); EOSINOPHILS # (AUTO) 0.3 K/uL (0.0-0.7); EOSINOPHILS % (AUTO) 1.7 % (0.0-6.0); HEMATOCRIT 26 % (39-51); HEMOGLOBIN 8.1 g/dL (13.5-17.5); LYMPHOCYTES # (AUTO) 1.2 K/uL (0.8-4.8); LYMPHOCYTES % (AUTO) 7.4 % (20.0-44.0); MEAN CORPUSCULAR HEMOGLOBIN 28 PG (26.0-33.0); MEAN CORPUSCULAR HGB CONC 32 g/dl (31.0-36.0); MEAN CORPUSCULAR VOLUME 89 fL (80-96); MONOCYTES # (AUTO) 1.6 K/uL (0.1-1.30); MONOCYTES % (AUTO) 9.4 % (2.0-12.0); NEUTROPHILS # (AUTO) 13.5 K/uL (1.8-8.9); NEUTROPHILS % (AUTO) 81.2 % (43.0-81.0); PLATELET COUNT (AUTO) 220 K/uL (150-450); RED BLOOD CELL COUNT(AUTO) 2.87 MIL/uL (4.5-6.0); RED CELL DISTRIBUTION WIDTH 19.1 % (11.5-15.0); WHITE BLOOD COUNT (AUTO) 16.7 K/uL (4.3-11.0)
[2024-09-02 07:33] LABS: CALCIUM, SERUM 9.3 mg/dL (8.5-10.1); CARBON DIOXIDE 27 mmol/L (21-32); CHLORIDE 101 mmol/L (98-107); CREATININE 3.8 mg/dL (0.6-1.3); GLUCOSE 158 mg/dL (74-106); POTASSIUM 3.1 mmol/L (3.5-5.1); SODIUM SERUM 139 mmol/L (136-145); UREA NITROGEN, BLOOD 56 mg/dL (7-18)
[2024-09-02 07:42] LABS: IRON, SERUM 19 ug/dl (50-175); TOTAL IRON BINDING CAPACITY 83 ug/dl (250-450)
[2024-09-02 08:13] LABS: FERRITIN 1759 ng/mL (8-388)
[2024-09-03] VITALS (13 sets, daily range): BP systolic 93–96; BP diastolic 52–60; TEMP 98.4–99; O2SAT 95–100
[2024-09-03 06:55] LABS: BASOPHILS % (AUTO) 0.3 % (0.0-2.0); EOSINOPHILS # (AUTO) 0.3 K/uL (0.0-0.7); EOSINOPHILS % (AUTO) 2.4 % (0.0-6.0); HEMATOCRIT 25 % (39-51); HEMOGLOBIN 7.9 g/dL (13.5-17.5); LYMPHOCYTES # (AUTO) 1.2 K/uL (0.8-4.8); LYMPHOCYTES % (AUTO) 8.3 % (20.0-44.0); MEAN CORPUSCULAR HEMOGLOBIN 28 PG (26.0-33.0); MEAN CORPUSCULAR HGB CONC 31 g/dl (31.0-36.0); MEAN CORPUSCULAR VOLUME 90 fL (80-96); MONOCYTES # (AUTO) 1.5 K/uL (0.1-1.30); MONOCYTES % (AUTO) 10.4 % (2.0-12.0); NEUTROPHILS # (AUTO) 11.4 K/uL (1.8-8.9); NEUTROPHILS % (AUTO) 78.6 % (43.0-81.0); PLATELET COUNT (AUTO) 197 K/uL (150-450); RED CELL DISTRIBUTION WIDTH 18.8 % (11.5-15.0); WHITE BLOOD COUNT (AUTO) 14.4 K/uL (4.3-11.0)
[2024-09-03 07:20] LABS: CALCIUM, SERUM 9.8 mg/dL (8.5-10.1); CARBON DIOXIDE 26 mmol/L (21-32); CHLORIDE 99 mmol/L (98-107); CREATININE 3.2 mg/dL (0.6-1.3); GLUCOSE 137 mg/dL (74-106); POTASSIUM 3.3 mmol/L (3.5-5.1); SODIUM SERUM 136 mmol/L (136-145); UREA NITROGEN, BLOOD 49 mg/dL (7-18)
[2024-09-03] MEDS: POTASSIUM CHLORIDE 20 MEQ POWDER PACKET GT ONE (10:55)
[2024-09-04] VITALS (15 sets, daily range): BP systolic 88–105; BP diastolic 48–58; TEMP 97.7–98.4; O2SAT 94–99
[2024-09-04 06:34] LABS: BASOPHILS # (AUTO) 0.1 K/uL (0.0-0.2); BASOPHILS % (AUTO) 0.5 % (0.0-2.0); EOSINOPHILS # (AUTO) 0.3 K/uL (0.0-0.7); EOSINOPHILS % (AUTO) 2.2 % (0.0-6.0); HEMATOCRIT 25 % (39-51); HEMOGLOBIN 7.9 g/dL (13.5-17.5); LYMPHOCYTES # (AUTO) 1.1 K/uL (0.8-4.8); LYMPHOCYTES % (AUTO) 7.6 % (20.0-44.0); MEAN CORPUSCULAR HEMOGLOBIN 28 PG (26.0-33.0); MEAN CORPUSCULAR HGB CONC 32 g/dl (31.0-36.0); MEAN CORPUSCULAR VOLUME 90 fL (80-96); MONOCYTES # (AUTO) 1.6 K/uL (0.1-1.30); MONOCYTES % (AUTO) 10.8 % (2.0-12.0); NEUTROPHILS # (AUTO) 11.6 K/uL (1.8-8.9); NEUTROPHILS % (AUTO) 78.9 % (43.0-81.0); PLATELET COUNT (AUTO) 178 K/uL (150-450); RED BLOOD CELL COUNT(AUTO) 2.79 MIL/uL (4.5-6.0); RED CELL DISTRIBUTION WIDTH 18.4 % (11.5-15.0); WHITE BLOOD COUNT (AUTO) 14.7 K/uL (4.3-11.0)
[2024-09-04 06:46] LABS: CALCIUM, SERUM 9.9 mg/dL (8.5-10.1); CARBON DIOXIDE 26 mmol/L (21-32); CHLORIDE 99 mmol/L (98-107); CREATININE 4.1 mg/dL (0.6-1.3); GLUCOSE 140 mg/dL (74-106); POTASSIUM 3.3 mmol/L (3.5-5.1); SODIUM SERUM 137 mmol/L (136-145); UREA NITROGEN, BLOOD 63 mg/dL (7-18)
[2024-09-04 07:57] LABS: NEUTROPHILS % (MANUAL) 79 (42-76)
[2024-09-04 07:58] LABS: LYMPHOCYTES % (MANUAL) 8 % (16-48); MONOCYTES % (MANUAL) 8 % (0-11.0)
[2024-09-04 08:00] LABS: EOSINOPHILS % (MANUAL) 5 % (0-4)
[2024-09-04 08:01] LABS: ANISOCYTOSIS 1+; PLATELET ESTIMATE ADEQUATE
[2024-09-04 08:03] LABS: STOMATOCYTES 1+
[2024-09-05] VITALS (14 sets, daily range): BP systolic 88–102; BP diastolic 49–50; TEMP 97.7–99.5; O2SAT 94–98
[2024-09-05 07:52] LABS: CARBON DIOXIDE 23 mmol/L (21-32); CHLORIDE 97 mmol/L (98-107); CREATININE 4.8 mg/dL (0.6-1.3); GLUCOSE 129 mg/dL (74-106); POTASSIUM 3.9 mmol/L (3.5-5.1); SODIUM SERUM 134 mmol/L (136-145)
[2024-09-05 08:04] LABS: UREA NITROGEN, BLOOD 85 mg/dL (7-18)
[2024-09-06] VITALS (12 sets, daily range): BP systolic 91–107; BP diastolic 45–52; TEMP 97.9–98.2; O2SAT 95–100
[2024-09-06 06:57] LABS: CALCIUM, SERUM 9.5 mg/dL (8.5-10.1); CARBON DIOXIDE 27 mmol/L (21-32); CHLORIDE 98 mmol/L (98-107); CREATININE 4.8 mg/dL (0.6-1.3); GLUCOSE 125 mg/dL (74-106); POTASSIUM 3.2 mmol/L (3.5-5.1); SODIUM SERUM 136 mmol/L (136-145); UREA NITROGEN, BLOOD 74 mg/dL (7-18)
[2024-09-06 06:59] LABS: BASOPHILS # (AUTO) 0.1 K/uL (0.0-0.2); BASOPHILS % (AUTO) 0.4 % (0.0-2.0); EOSINOPHILS # (AUTO) 0.4 K/uL (0.0-0.7); EOSINOPHILS % (AUTO) 2.9 % (0.0-6.0); HEMATOCRIT 22 % (39-51); HEMOGLOBIN 7.3 g/dL (13.5-17.5); LYMPHOCYTES # (AUTO) 1.1 K/uL (0.8-4.8); LYMPHOCYTES % (AUTO) 6.9 % (20.0-44.0); MEAN CORPUSCULAR HEMOGLOBIN 29 PG (26.0-33.0); MEAN CORPUSCULAR HGB CONC 33 g/dl (31.0-36.0); MEAN CORPUSCULAR VOLUME 89 fL (80-96); MONOCYTES # (AUTO) 1.2 K/uL (0.1-1.30); NEUTROPHILS # (AUTO) 12.7 K/uL (1.8-8.9); NEUTROPHILS % (AUTO) 81.8 % (43.0-81.0); PLATELET COUNT (AUTO) 186 K/uL (150-450); RED CELL DISTRIBUTION WIDTH 18.4 % (11.5-15.0); WHITE BLOOD COUNT (AUTO) 15.5 K/uL (4.3-11.0)
[2024-09-06] MEDS: ALBUMIN 25% 25 GM in PREMIX 1 EA IV PRN (13:23)
[2024-09-06] MEDS: FLUCONAZOLE (100 MG) 100 MG TABLET PO SCH (21:18)
[2024-09-06] MEDS: GENTAMICIN 140 MG in IV D5W 100 ML IV ONE (21:25)
[2024-09-07] VITALS (7 sets, daily range): BP systolic 101–117; BP diastolic 47–57; TEMP 97.9–98.2; O2SAT 94–100
[2024-09-07 07:06] LABS: BASOPHILS # (AUTO) 0.1 K/uL (0.0-0.2); BASOPHILS % (AUTO) 0.5 % (0.0-2.0); EOSINOPHILS # (AUTO) 0.4 K/uL (0.0-0.7); EOSINOPHILS % (AUTO) 2.5 % (0.0-6.0); HEMATOCRIT 25 % (39-51); HEMOGLOBIN 7.7 g/dL (13.5-17.5); LYMPHOCYTES # (AUTO) 1.7 K/uL (0.8-4.8); LYMPHOCYTES % (AUTO) 12.1 % (20.0-44.0); MEAN CORPUSCULAR HEMOGLOBIN 28 PG (26.0-33.0); MEAN CORPUSCULAR HGB CONC 31 g/dl (31.0-36.0); MEAN CORPUSCULAR VOLUME 88 fL (80-96); MONOCYTES # (AUTO) 1.2 K/uL (0.1-1.30); MONOCYTES % (AUTO) 8.3 % (2.0-12.0); NEUTROPHILS # (AUTO) 10.7 K/uL (1.8-8.9); NEUTROPHILS % (AUTO) 76.6 % (43.0-81.0); PLATELET COUNT (AUTO) 195 K/uL (150-450); RED CELL DISTRIBUTION WIDTH 18.5 % (11.5-15.0)
[2024-09-07 07:15] LABS: CALCIUM, SERUM 10.4 mg/dL (8.5-10.1); CARBON DIOXIDE 23 mmol/L (21-32); CHLORIDE 96 mmol/L (98-107); CREATININE 3.1 mg/dL (0.6-1.3); GLUCOSE 95 mg/dL (74-106); POTASSIUM 3.5 mmol/L (3.5-5.1); SODIUM SERUM 134 mmol/L (136-145); UREA NITROGEN, BLOOD 41 mg/dL (7-18)
[2024-09-07] MEDS: Z GUARD REMEDY 4 OZ OINT TP PRN (10:04)
[2024-09-07 11:06] LABS: EOSINOPHILS % (MANUAL) 4 % (0-4); LYMPHOCYTES % (MANUAL) 7 % (16-48); MONOCYTES % (MANUAL) 6 % (0-11.0); NEUTROPHILS % (MANUAL) 83 (42-76); PLATELET ESTIMATE ADEQUATE
[2024-09-07 11:07] LABS: ANISOCYTOSIS 1+; OVALOCYTES 1+; STOMATOCYTES 1+
[2024-09-07] MEDS: GENTAMICIN 100 MG in IV D5W 50 ML IV PRN (18:01)
== END 2024-09-07 20:10 | DRG 981 ==
LOC: ER 17:40 → TELE 20:31 → MED 09-01 02:54
PROVIDERS: ATTEND Internal Medicine
PROC: 0KBP0ZZ Excision of Left Hip Muscle, Open Approach (ICD-10-PCS; principal; 2024-09-01)
PROC: 0KBN0ZZ Excision of Right Hip Muscle, Open Approach (ICD-10-PCS; 2024-09-01)
PROC: 5A1D70Z Performance of Urinary Filtration, Intermittent, Less than 6 Hours Per Day (ICD-10-PCS; 2024-09-02)
PROC: 0W9B3ZZ Drainage of Left Pleural Cavity, Percutaneous Approach (ICD-10-PCS; 2024-09-07)
DX: J15.69 Pneumonia due to other Gram-negative bacteria (principal); G93.41 Metabolic encephalopathy; L89.154 Pressure ulcer of sacral region, stage 4; I21.A1 Myocardial infarction type 2; I50.33 Acute on chronic diastolic (congestive) heart failure; N18.6 End stage renal disease; I13.2 Hypertensive heart and chronic kidney disease with heart failure and with stage 5 chronic kidney disease, or end stage renal disease; I48.20 Chronic atrial fibrillation, unspecified; J90 Pleural effusion, not elsewhere classified; D64.9 Anemia, unspecified; E11.22 Type 2 diabetes mellitus with diabetic chronic kidney disease; E78.5 Hyperlipidemia, unspecified; E87.6 Hypokalemia; I25.10 Atherosclerotic heart disease of native coronary artery without angina pectoris; I25.2 Old myocardial infarction; K21.9 Gastro-esophageal reflux disease without esophagitis; R13.10 Dysphagia, unspecified; N40.0 Benign prostatic hyperplasia without lower urinary tract symptoms; Z66 Do not resuscitate; Z79.01 Long term (current) use of anticoagulants; Z99.2 Dependence on renal dialysis; Z95.0 Presence of cardiac pacemaker; Z93.1 Gastrostomy status; Z87.891 Personal history of nicotine dependence; Z85.46 Personal history of malignant neoplasm of prostate; F03.90 Unspecified dementia, unspecified severity, without behavioral disturbance, psychotic disturbance, mood disturbance, and anxiety; J15.9 Unspecified bacterial pneumonia; I70.0 Atherosclerosis of aorta; I35.8 Other nonrheumatic aortic valve disorders; F01.50 Vascular dementia, unspecified severity, without behavioral disturbance, psychotic disturbance, mood disturbance, and anxiety; E83.39 Other disorders of phosphorus metabolism; D72.829 Elevated white blood cell count, unspecified
CPT/HCPCS: 36415; 71045-TC; 71250-TC; 80048-TC; 80076-TC; 80170-TC; 80202-TC; 82607-TC; 82728-TC; 82962-TC; 83540-TC; 83605-TC; 83735-TC; 84100-TC; 84484-TC; 85025-TC; 85730-TC; 87040-TC; 87081-TC; 90935-TC; 94760-TC; 94761-TC; 94799-TC; A4216; A4223; A6403; G0378; J0692; J0696; J0885; J1580; J1815; J2470; J3370; J3490; J7030; J7040; J7050; J7060; P9047